=== PATIENT | female | born 2005 | race Caucasian/White ===

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

== ENCOUNTER → 2025-04-25 | Outpatient (CLI) | payer OTHER, SELFPAY ==
[2025-04-25 13:29] LABS: Barbiturate Urine NEGATIVE (< 200 ng/mL); Benzodiazepine Urine NEGATIVE (< 200 ng/mL); PCP Urine NEGATIVE (< 25 ng/mL); THC Urine PRESUMPTIVE POSITIVE (< 50 ng/mL)
[2025-04-26 21:07] LABS: Chlamydia By Nucleic Acid AMP Negative (Negative); Gonococcus By Nucleic Acid AMP Negative (Negative)
== END | disposition home or self-care (01) ==
PROVIDERS: PCP Family Medicine; Visit Provider Advanced Practice Midwife
DX: O09.90 Supervision of high risk pregnancy, unspecified, unspecified trimester (principal); Z3A.00 Weeks of gestation of pregnancy not specified; F12.90 Cannabis use, unspecified, uncomplicated; O99.320 Drug use complicating pregnancy, unspecified trimester
CPT/HCPCS: 80307; 87086; 87088; 87491; 87591

== ENCOUNTER → 2025-05-15 | Outpatient (CLI) | payer OTHER, SELFPAY ==
[2025-05-15 12:24] LABS: Hematocrit 41.1 % (37-47); Hemoglobin 14.5 g/dL (12.0-15.0); Immature Granulocytes Count 0.060 X10^3/uL (0.0-0.0); Mean Corp Hgb Conc 35.3 g/dL (32-36); Mean Corpuscular Volume 90.9 fL (81-99); Mean Platelet Vol. 10.0 fl (6.2-12.0); NRBC Flagged by Analyzer 0 % (0-5); Platelet Count 258 K/mm3 (150-450); RBC Distribution Width CV 12.7 % (11.6-14.6); RBC Distribution Width SD 41.7 fl (35.1-43.9); Red Blood Count 4.52 M/mm3 (4.2-5.4); White Blood Count 7.8 K/mm3 (4.4-11.0)
[2025-05-15 13:05] LABS: HIV Nonreactive (Nonreactive); Iron 219 ug/dL (50-170); Iron Binding Capacity,Total 383 ug/dL (250-450); Iron Binding Capacity,Unsat 164 ug/dL (228-428)
[2025-05-15 13:14] LABS: Hepatitis B Surface Antigen Nonreactive (Nonreactive); Hepatitis C Antibody Nonreactive (Nonreactive); Syphilis Antibodies Nonreactive (Nonreactive); Vitamin B12 518 pg/mL (180-914)
[2025-05-19 02:07] LABS: Vitamin B1, Thiamine 147.5 nmol/L (66.5-200.0)
== END | disposition home or self-care (01) ==
PROVIDERS: Advanced Practice Midwife; PCP Family Medicine; Referring Provider Obstetrics & Gynecology; Visit Provider Obstetrics & Gynecology
DX: O09.90 Supervision of high risk pregnancy, unspecified, unspecified trimester (principal); Z3A.00 Weeks of gestation of pregnancy not specified
CPT/HCPCS: 36415; 82607; 83540; 83550; 84425; 85025; 86703; 86762; 86780; 86803; 86850; 86900; 86901; 87340

== ENCOUNTER → 2025-07-12 | Outpatient (CLI) | payer OTHER, SELFPAY ==
--- NOTE | 2025-07-12 07:46 | US_ITS ---
PROCEDURE: OB ANATOMY W/ TRANSVAGINAL 07/12/2025 REASON FOR EXAM: ANATOMY SCAN TECHNIQUE: Procedure Code: [id number] Modality: US Procedure: OB ANATOMY W/ TRANSVAGINAL COMPARISON: 04/25/2025 FINDINGS FETUS: There is a single living intrauterine gestation. POSITION: position is breech. HEART RATE: The heart rate is 136 BPM and regular. BIOMETRICS: Based on composite biometry, the composite estimated gestational age by ultrasound is 20 weeks 0 days. LMP gestational age: 20 weeks 0 days LMP ANNI: November 29, 2025 Sonographic gestational age: 20 weeks 0 days Sonographic ANNI: November 29, 2025 ANATOMIC SURVEY: The visualized anatomy is unremarkable. No gross anatomic abnormality is identified, including intracranial structures, nose/lips, profile, 4 chamber heart, diaphragm, fluid-filled stomach and urinary bladder, kidneys, 3-vessel cord, cord insertion, and extremities. The spine is not well seen due to positioning. PLACENTA: The placenta is anterior, grade 0, with eccentric cord insertion. No demonstrated evidence of previa or abruption. The inferior placental margin terminates 4.5 cm from the internal cervical os. AMNIOTIC FLUID: Within normal limits. Max vertical pocket (MVP) measuring 6.1 cm. CERVIX: Long and closed measuring 4.7 cm in length. Unremarkable as visualized. SONOGRAPHIC MEASUREMENTS: Bi-Parietal Diameter (BPD): 4.8 cm; 20 weeks 3 days Head Circumference (HC): 17.9 cm; 20 weeks 2 days Abdominal Circumference (AC): 15.5 cm; 20 weeks 5 days Femur Length (FL): 3.1 cm; 19 weeks 3 days Estimated weight: 340 grams +/- 51 grams (12 oz) EFW percentile: 57.8 % US/OB Anatomy w/ Transvaginal IMPRESSION: 1. Single living intrauterine gestation estimated at 20 weeks 0 days by today' s ultrasound criteria. Size equals dates with normal interval growth. 2. The spine is not well seen due to positioning. No acute abnormality detected. Reading Location: [id number]
== END | disposition home or self-care (01) ==
LOC: US 07:45
PROVIDERS: PCP Family Medicine; Referring Provider Obstetrics & Gynecology; Visit Provider Obstetrics & Gynecology
DX: O09.90 Supervision of high risk pregnancy, unspecified, unspecified trimester (principal); Z3A.00 Weeks of gestation of pregnancy not specified
CPT/HCPCS: 76805; 76817

== ENCOUNTER → 2025-07-17 | Outpatient (CLI) | payer OTHER, SELFPAY ==
--- OUTSIDE RECORDS SUMMARY | 2025-07-17 09:22 | XMS RPT_ITS | CCD ---
Author Organization [facility] Care Team Providers Care Territory Account Executive Name Role Phone CHRISTIAN DENIS MD Primary Care Unavailable CHRISTIAN DENIS MD Attending Unavailable VERENA BYRNES Consulting Unavailable VERENA BYRNES Referring Unavailable CHRISTIAN DENIS MD Admitting Unavailable PROVIDER, UNKNOWN Consulting Unavailable PROVIDER, UNKNOWN Consulting Unavailable Dr. Verena Byrnes Primary Care Provider Dr. Verena Byrnes Referring Provider TAURUS Devine Attending Provider Dr. Verena Byrnes Primary Care Provider Dr. Verena Byrnes Referring Provider TAURUS Devine Attending Provider TAURUS Branham Attending Provider Dr. Verena Byrnes Primary Care Provider Dr. Verena Byrnes Referring Provider TAURUS Branham Attending Provider Verena Byrnes MD Primary Care Provider Dr. Verena Byrnes Primary Care Provider Dr. Verena Byrnes Referring Provider TAURUS Branham Attending Provider EWA VALENCIA Referring Unavailable EWA VALENCIA Attending Unavailable VERENA BYRNES Primary Care Unavailable EWA VALENCIA Referring Unavailable EWA VALENCIA Attending Unavailable MIEDGENA, VERENA E Primary Care Unavailable MELVA MEYER Attending Unavailable MELVA MEYER Admitting Unavailable MIEDEL, VERENA E Primary Care Unavailable EWA VALENCIA Attending Unavailable REFERRED, SELF Referring Unavailable QI BYRNESH E Primary Care Unavailable Soniya KING, Dr. Albarado Primary Care Provider Dr. Verena Byrnes MD Referring Provider [phone] Brenna Hill DO Attending Provider Karen Aj CNM Attending Provider [phone] Dr. Verena Byrnes MD Primary Care Physician Dr. Brenna Hill DO Attending Physician Karen Aj CNM Attending Physician [phone] Dr. Farzana Fair MD Attending Physician Dr. Farzana Fair MD Referring Provider [phone] Verena Byrnes Primary Care Unavailable Soniya Verena Referring Unavailable Farzana Fair Attending Unavailable Soniya, Verena Primary Care Unavailable Farzana Fair Referring Unavailable Farzana Fair Attending Unavailable Soniya, Verena Primary Care Unavailable Karen Aj Attending Unavailable Verena Byrnes Referring Unavailable Verena Byrnes Primary Care Unavailable Karen Aj Attending Unavailable Brenna Hill Attending Unavailabl e Vivianaedgena, Verena Referring Unavailable Caedgena, Verena Primary Care Unavailable Medications Current Medications Medication Drug Class(es) Dates Sig (Normalized) Sig (Original) FLUoxetine 20 mg oral capsule (9 sources) Serotonin Reuptake Inhibitor Start: 04-09-2025 End: 05-24-2025 take 1 capsule by mouth once daily Fluoxetine 20 mg capsule Active 20 mg PO daily 30 May 24, 2025 11:57am Complies with drug therapy Start: 10-07-2022 End: 01-26-2023 FLUoxetine (PROZAC) 20 MG ca psule 0 10/07/2022 01/26/2023 Discontinued (Stop Taking (On AVS)) Mv-Mins 19-Iawi-Twmqu No.1-D arias (Pnv-Mcintosh) 28-1-300 mg capsule (5 sources) Start: 04-09-2025 Mv-Mins 71-Iro n-Folic No.1-Dha (Pnv-Mcintosh) 28-1-300 mg capsule Active NMA PO April 09, 2025 12:00am Complies with drug therapy Start: 04-09-2025 Start: 04-09-2025 Mv-Mins 71-Iro n-Folic No.1-Dha (Pnv-Mcintosh) 28-1-300 mg capsule Active NMA PO April 09, 2025 12:00am promethazine hydrochloride 25 mg oral tablet (4 sources) Phenothiazine Start: 04-09-2025 take 1 tablet by mouth three times daily as needed for nausea and vomiting and anxiety Promethazine 25 mg tablet Active 25 mg PO THREE TIMES A DAY as needed for nausea and vomiting, and anxiety 60 2 April 09, 2025 12:00am Complies with drug therapy Completed/Discontinued Medications Medication Drug Class(es) Dates Sig (Normalized) Sig (Original) amoxicillin 500 mg oral capsule (10 sources) Penicillin-class Antibacterial Start: 07-20-2021 End: 09-20-2021 take 1 capsule by mouth every twelve hours Amoxicillin 500 mg capsule Discontinued 500 mg PO Q12H July 20, 2021 1:00am September 20, 2021 2:07pm amoxicillin 875 mg / clavulanate 125 mg oral tablet (10 sources) Penicillin-class Antibacterial Start: 06-22-2022 End: 07-02-2022 Amoxicillin-Pot Clavulanate 875-125 mg tablet Discontinued 1 {tbl} PO Q12H 20 10 June 22, 2022 12:00am July 01, 2022 1:00am July 02, 2022 1:05am Acute sinusitis, unspecified Start: 06-22-2022 End: 07-02-2022 take 1 tablet by mouth every twelve hours Amoxicillin-Pot Clavulanate Discontinued 1 TABLET PO Q12H 20 June 22, 2022 12:00am July 02, 2022 1:05am calcium chloride 0.0014 meq/ml / potassium chloride 0.004 meq/ml / sodium chloride 0.103 meq/ml / sodium lactate 0.028 meq/ml injectable solution (1 source) Start: 01-26-2023 End: 01-26-2023 CONTINUOUS, Intravenous, at 90 mL/hr, Starting on Tue01/26/23 at 1100, For 90 days, PACU clindamycin 300 mg oral capsule (10 sources) Lincosamide Antibacterial Start: 08-23-2018 End: 10-25-2018 take 1 capsule by mouth three times daily Clindamycin Hcl 300 mg capsule Discontinued 300 mg PO THREE TIMES A DAY 21 0 August 23, 2018 1:00am October 25, 2018 1:48pm dicyclomine hydrochloride 10 mg oral capsule (8 sources) Anticholinergic Start: 12-02-2022 End: 04-09-2025 take 2 capsules by mouth every six hours as needed Dicyclomine 10 mg capsule Discontinued 20 mg PO EVERY 6 HOURS NEEDED as needed for abdominal discomfort 24 December 02, 2022 3:27pm April 09, 2025 8:10am Start: 12-02-2022 take 20 mg by mouth every six hours as needed Dicyclomine Active 20 MG PO EVERY 6 HOURS NEEDED December 02, 2022 3:27pm escitalopram 10 mg oral tablet (13 sources) Serotonin Reuptake Inhibitor Start: 11-05-2019 End: 04-09-2025 take 2 tablets by mouth once daily Escitalopram Oxalate 10 mg tablet Discontinued 20 mg PO DAILY November 05, 2019 12:00am April 09, 2025 8:10am Start: 11-05-2019 take 20 mg by mouth once daily Escitalopram Oxalate Active 20 MG PO DAILY November 05, 2019 12:00am End: 01-26-2023 escitalopram (LEXAPRO) 10 MG tablet Take by mouth daily 0 01/26/2023 Discontinued (Stop Taking (On AVS)) esomeprazole 40 mg delayed release oral capsule (13 sources) Proton Pump Inhibitor Start: 07-03-2021 End: 04-09-2025 take 1 capsule by mouth once daily Esomeprazole Magnesium 40 mg capsule,delayed release(DR/EC) Discontinued 40 mg PO DAILY July 03, 2021 1:00am April 09, 2025 8:10am hydrOXYzine pamoate 25 mg oral capsule (10 sources) Antihistamine Start: 10-08-2021 End: 04-09-2025 take 1 capsule by mouth three times daily as needed for anxiety Hydroxyzine Pamoate (Vistaril) 25 mg capsule Discontinued 25 mg PO THREE TIMES A DAY as needed for anxiety 20 0 October 08, 2021 1:00am April 09, 2025 8:10am hyoscyamine sulfate 0.125 mg oral tablet (3 sources) Start: 02-25-2021 End: 01-26-2023 take 1 tablet by mouth every six hours as needed for pain hyoscyamine (LEVSIN) 0.125 MG TABS tablet Take 1 Tablet (0.125 mg) by mouth every 6 hours as needed for Other (abdominal pain, nausea) 90 Tablet 2 02/25/2021 01/26/2023 Discontinued (Stop Taking (On AVS)) ibuprofen 200 mg oral capsule (10 sources) Nonsteroidal Anti-inflammatory Drug Start: 10-26-2019 End: 11-05-2019 take 1 capsule by mouth every six hours as needed Ibuprofen 200 mg capsule Discontinued 200 mg PO EVERY 6 HOURS as needed October 26, 2019 1:00am November 05, 2019 5:48pm ondansetron 4 mg disintegrating oral tablet (8 sources) Serotonin-3 Receptor Antagonist Start: 12-02-2022 End: 04-09-2025 take 2 tablets by mouth every twelve hours as needed for nausea Ondansetron 4 mg tablet,disintegratin g Discontinued 8 mg PO EVERY 12 HOURS NEEDED as needed for Nausea 14 December 02, 2022 3:28pm April 09, 2025 8:10am Start: 12-02-2022 take 8 mg by mouth e very twelve hours as needed Ondansetron Active 8 MG PO EVERY 12 HOURS NEEDED December 02, 2022 3:28pm oseltamivir 75 mg oral capsule (10 sources) Neuraminidase Inhibitor Start: 10-26-2019 End: 10-31-2019 take 1 capsule by mouth every twelve hours Oseltamivir (Tamiflu) 75 mg capsule Discontinued 75 mg PO Q12H 10 5 0 October 26, 2019 1:00am October 30, 2019 12:00am October 31, 2019 12:07am penicillin v potassium 500 mg oral tablet (10 sources) Start: 11-10-2020 End: 11-20-2020 take 1 tablet by mouth twice daily Penicillin V Potassium 500 mg tablet Discontinued 500 mg PO TWICE A DAY 20 10 0 November 10, 2020 12:00am November 19, 2020 12:00am November 20, 2020 12:03am sulfamethoxazole 800 mg / trimethoprim 160 mg oral tablet (10 sources) Dihydrofolate Reductase Inhibitor Antibacterial, Sulfonamide Antimicrobial Start: 11-05-2019 End: 11-12-2019 Sulfamethoxazole- Trimethoprim (Bactrim Ds) 800-160 mg tablet Discontinued 1 {tbl} PO Q12H 14 7 0 November 05, 2019 12:00am November 11, 2019 12:00am November 12, 2019 12:07am Problems Active Problems Problem Classification Problem Date Documented Date Episodic/Chronic Abdominal pain (16 sources) Generalized abdominal pain; Translations: [Generalized abdominal pain] Onset: 12-17-2020 12-02-2022 Episodic Administrative/social admission (12 sources) Patient encounter status; Translations: [Encounter for pre-employment examination] Episodic Anxiety disorders (20 sources) Anxiety; Translations: [Anxiety disorder, unspecified] Onset: 04-25-2025 10-16-2021 Chronic Comment on above: fluoxetine Coagulation and hemorrhagic disorders (10 sources) Thrombocytopenic disorder; Translations: [Thrombocytopenia, unspecified] 10-16-2021 Chronic Diseases of mouth; excluding dental (10 sources) Parotitis; Translations: [Acute sialoadenitis] 03-12-2020 Episodic Esophageal disorders (3 sources) Gastroesophageal reflux disease; Translations: [Gastro-esophageal reflux disease without esophagitis] Onset: 12-17-2020 01-05-2021 Chronic Gastritis and duodenitis (8 sources) Acute gastritis; Translations: [Acute gastritis without bleeding] 12-02-2022 Episodic Gastroduodenal ulcer (except hemorrhage) (10 sources) H/O: gastric ulcer; Translations: [Personal history of peptic ulcer disease] Onset: 04-25-2025 04-09-2025 Episodic Immunizations and screening for infectious disease (20 sources) Contact with or exposure to other viral diseases; Translations: [Exposure to COVID-19 virus] Episodic Influenza (10 sources) Influenza due to Influenza B virus; Translations: [Influenza due to other identified influenza virus with other respiratory manifestations] 10-26-2019 Episodic Mood disorders (13 sources) Depressive disorder; Translations: [Depression] Onset: 02-17-2021 07-12-2021 Chronic Mood disorders (1 source) Mood disorders; Translations: [Depression, unspecified] Onset: 04-25-2025 Nausea and vomiting (6 sources) Vomiting; Translations: [Vomiting, unspecified] Onset: 12-17-2020 12-09-2022 Episodic Noninfectious gastroenteritis (18 sources) Gastroenteritis; Translations: [Noninfective gastroenteritis and colitis, unspecified] Onset: 04-25-2025 09-22-2022 Episodic Other complications of (9 sources) High risk ; Translations: [Supervision of high risk , unspecified, unspecified trimester] 04-09-2025 Episodic Comment on above: , ANNI 11/29/25, H usband Sebastian PRR, , ANNI , Sebastian Other complications of (1 source) Supervision of high risk , unspecified, unspecified trimester; Translations: [Supervision of high risk , unspecified, unspecified trimester] Onset: 05-24-2025 Episodic Other injuries and conditions due to external causes (5 sources) Contusion of rib; Translations: [Other specified injuries of thorax, initial encounter] 03-13-2020 Episodic Other nutritional; endocrine; and metabolic disorders (3 sources) Weight loss; Translations: [Abnormal weight loss] Onset: 12-09-2022 12-09-2022 Episodic Other nutritional; endocrine; and metabolic disorders (9 sources) Underweight; Translations: [Underweight] 04-09-2025 Episodic Comment on above: thiamine, B12, iron & iron binding Other nutritional; endocrine; and metabolic disorders (1 source) Underweight; Translations: [Underweight] Onset: 04-25-2025 Episodic Other nutritional; endocrine; and metabolic disorders (1 source) Body mass index (BMI) 19.9 or less, adult; Translations: [Body mass index [BMI] 19.9 or less, adult] Onset: 04-25-2025 Episodic Other and delivery including normal (9 sources) ; Translations: [Encounter for supervision of normal , unspecified, unspecified trimester] 04-25-2025 Episodic Comment on above: elects NIPT with gen beatriz, declines carrier NIPT low risk, decli jacqueline carrier Other upper respiratory disease (10 sources) Nasal infection; Translations: [Other specified disorders of nose and nasal sinuses] 09-20-2021 Episodic Other upper respiratory infections (20 sources) Pharyngitis; Translations: [Acute pharyngitis, unspecified] Episodic Residual codes; unclassified (9 sources) Electronic cigarette user; Translations: [Other problems related to lifestyle] 04-09-2025 Episodic Comment on above: cutting down, consid ering quitting, discussed risks & encouraged cessation Residual codes; unclassified (9 sources) Family history of breast cancer; Translations: [Family history of malignant neoplasm of breast] 04-09-2025 Episodic Comment on above: Maternal Grandmother Residual codes; unclassified (1 source) 8 weeks gestation of ; Translations: [8 weeks gestation of ] Onset: 04-25-2025 Episodic Residual codes; unclassified (1 source) Family history of malignant neoplasm of breast; Translations: [Family history of malignant neoplasm of breast] Onset: 04-25-2025 Episodic Residual codes; unclassified (1 source) Other problems related to lifestyle; Translations: [Other problems related to lifestyle] Onset: 04-25-2025 Episodic Skin and subcutaneous tissue infections (10 sources) Paronychia of finger; Translations: [Cellulitis of left finger] 11-05-2019 Episodic Sprains and strains (14 sources) Sprain of ankle; Translations: [Sprain of unspecified ligament of left ankle, initial encounter] 08-25-2022 Episodic Substance-related disorders (10 sources) Marijuana user; Translations: [Cannabis use, unspecified, uncomplicated] Onset: 04-25-2025 04-09-2025 Episodic Comment on above: attempting to decrea se use, discussed risks & encouraged cessation Suicide and intentional self-inflicted injury (10 sources) Suicidal thoughts; Translations: [Suicidal ideations] 07-12-2021 Episodic Superficial injury; contusion (20 sources) Contusion of foot; Translations: [Contusion of unspecified foot, initial encounter] 07-06-2020 Episodic Past or Other Problems Problem Classification Problem Date Documented Da te Episodic/Chronic Other gastrointestinal disorders (3 sources) Heartburn; Translations: [Heartburn] Onset: 12-17-2020 12-17-2020 Episodic Results Test Name Value Interpretation Reference Range Facility Devops Consultant Office Visit Reporton 05-24-2025 Devops Consultant Office Visit Report [facility] [address], [address] [place] [address] OFFICE VISIT Date of Service: 05/24/25 MR#: [id number] Acct: [id number] Name: PRESLEY FRANCE Rep #: [id number] : 2005 Provider: Dr. Farzana thompson MD Age/Sex: 20/F [place] [facility] [place]: Signed Intake Vital Signs 12/02/22 13:10 04/09/25 08:56 04/25/25 08:11 05/24/25 11:32 Height 5 ft 5 in 5 ft 5 in 5 ft 3.5 in 5 ft 3.5 in Weight: 111 lb 4 oz 112 lb 7 oz BMI 19.3 19.5 BP 113/73 114/71 Intake Visit Reasons: 13 WK OB, discuss iron Boiler Attendant Required: No Is patient in pain?: No Allergies No Known Allergies Allergy (Verified 05/24/25 11:37) Medications ???Medication ???Instructions ???Recorded ???Confirmed ???Type multivit-min no.71-iron fum 28 cap PO 04/09/25 05/24/25 History mg-folate no.1 1 mg-dha 300 mg capsule (PNV-Mcintosh) promethazine 25 mg tablet 25 mg PO TID PRN nausea and 05/24/25 Rx vomiting, and anxiety #60 tabs fluoxetine 20 mg capsule 20 mg PO QDAY #30 caps 05/24/25 Rx Last Menstrual Period: 02/22/25 Zika: Zika virus screening: Negative : No PFSH PFSH Medical History Seasonal allergies Paronychia of finger of left hand Contact with and (suspected) exposure to other viral communicable diseases Gastroenteritis Contusion of left foot Left ankle sprain Depression Anxiety GERD (gastroesophageal reflux disease) Surgical History History of esophagogastroduodenoscopy (EGD) Family History Father High cholesterol Mother High cholesterol Maternal Grandmother Breast cancer, Onset Age: 67 Grandfather Cancer, Onset Age: 66 Paternal Maternal Grandfather Myocardial infarction, Onset Age: 50 Social History adopted: No household members: spouse housing: other details: trailer current occupational status: employed current occupation: [employer] pets and animals: Yes (Avoid litterbox) pets and animals: cat(s) and dog(s) history of recent travel: No sexually active: Yes Smoking Status: Current every day smoker tobacco type: e-cigarettes quit status: considering quitting alcohol intake: never substance use type: marijuana well-balanced diet: about half the time caffeine: Yes Type: coffee Number of servings: 2 eating out: 1-3 times/week during the past year weight has: remained stable what type of physical activity do you participate in: none giles/voodoo: None seatbelt use: sometimes do you feel safe at home: Yes additional social history: [employer] History 1 Elective abortions Hx Para 0 Spontaneous abortions Hx # Term Pregnancies Ectopic pregnancies Hx # Pregnancies Multiple births # of living children HPI 13 WK OB, discuss iron Details: PRESLEY FRANCE is a 20 year old who presents for routine OB visit. OB Visit ANNI Calculator Estimated Delivery Date Method Current WG Current Estimate 11/29/25 LMP (Uncertain) 13w 0d Other Estimates 11/29/25 Ultrasound #1 13w 0d Expected Delivery Route/Plan Labor Preferences- CB/BF classes: [] labor support person: [] labor intervention preferences: [] pain management options preferred: [] cut cord/dad catch: [] : [] PP control planned: [] discussed possible routes of delivery and associated risks: [] special requests: [] Specific Issue/Plans Covid status: [] Flu vaccine: [] Tdap vaccine: [] Rhogam: [] LARC form signed: [] Problem list reviewed and updated with the most current plan of care details and appropriate orders placed. Relevant counseling for the gestational age provided. Continue routine care and follow up unless otherwise noted in visit notes/problem list details Initial Weight: 111 lb Date -???-???-???-???-???-???-? ??-???-???-???-???-???- EGA Weight BP Urine Prot -???-???-???-???-???-???-? ??-???-???-???-???-???- Glucose FHR FuHt Pres Dilation -???-???-???-???-???-???-? ??-???-???-???-???-???- Effaced St Visit Note 04/25/25 -???-???-???-???-???-???-? ??-???-???-???-???-???- 8w 6d 111 lb 4 oz (+4 oz) 113/73 -???-???-???-???-???-???-? ??-???-???-???-???-???- 176 -???-???-???-???-???-???-? ??-???-???-???-???-???- KW- CRL 2.22 cons with dates. accepts NIPT 05/24/25 -???-???-???-???-???-???-? ??-???-???-???-???-???- 13w 0d 112 lb 7 oz (+1 lb 7 oz) 114/71 -???-???-???-???-???-???-? ??-???-???-???-???-???- 150 -???-???-???-???-???-???-? ??-???-???-???-???-???- SM- no vb lo f cramping ACOG First Trimester First Trim (more content not included)... Normal [facility] Vitamin B1, Thiamineon 05-19 VIT B1 THIAMINE 147.5 nmol/L Normal 66.5-200.0 [facility] Comment on above: Order Comment: Test( s) [id number]-Mzh. B1, Whole Bloodwas developed and its performance characteristicsdetermined by [facility]. It has not been cleared or approvedby the Food and Drug Administration.NIPT With Gender carrier Result Comment: Perf ormed at: [facility] [id number] Document Design Specialist: Teo Blum MD, Phone: [phone] Performed By: #### L 509.8002, BTS, L3300.8000, L3890.6006, L100.0100, L503.0106, L3890.6301, L3890.6102, L900.0098, L509.4006, L503.6030 ####[facility] [id number] [place], [place], [id number] Absolute lymphocyte countOrd ered By: Karen Aj on 05-15-2025 Lymphocytes Auto (Unsp spec) [#/Vol] 1.36 10*3/uL 0.83-4.51 [facility] Absolute neutrophil countOrd ered By: Karen Aj on 05-15-2025 Neutrophils (Bld) [#/Vol] 5.8 10*3/uL 2.0-7.7 [facility] Automated lymphocyte count a s percentage of total leukocytesOrdered By: Karen Aj on 05-15-2025 Lymphocytes/100 WBC Auto (Unsp spec) 17.4 % Low 19-41 [facility] Basophil percentageOrdered B y: Karen Aj on 05-15-2025 Basophils/100 WBC (Bld) 0.5 % 0-1 [facility] CBC W/Diff, Automatedon 04-23 Absolute Lymph 1.36 X10 3/uL Normal 0.83-4.51 [facility] Comment on above: Performed By: #### L 509.8002, BTS, L3300.8000, L3890.6006, L100.0100, L503.0106, L3890.6301, L3890.6102, L900.0098, L509.4006, L503.6030 #### [facility] [address] [place], [address] Absolute Neut 5.8 X10 3/uL Normal 2.0-7.7 [facility] Comment on above: Performed By: #### L 509.8002, BTS, L3300.8000, L3890.6006, L100.0100, L503.0106, L3890.6301, L3890.6102, L900.0098, L509.4006, L503.6030 #### [facility] [address] [place], [address] Basophils/100 WBC (Bld) 0.5 % Normal 0-1 [facility] Comment on above: Performed By: #### L 509.8002, BTS, L3300.8000, L3890.6006, L100.0100, L503.0106, L3890.6301, L3890.6102, L900.0098, L509.4006, L503.6030 #### [facility] [address] [place], [address] Eosinophils/100 WBC (Bld) 0.4 % Normal 0-5 [facility] Comment on above: Performed By: #### L 509.8002, BTS, L3300.8000, L3890.6006, L100.0100, L503.0106, L3890.6301, L3890.6102, L900.0098, L509.4006, L503.6030 #### [facility] [address] [place], [address] Erythrocyte distribution width (RBC) [Ratio] 12.7 % Normal 11.6-14.6 [facility] Comment on above: Performed By: #### L 509.8002, BTS, L3300.8000, L3890.6006, L100.0100, L503.0106, L3890.6301, L3890.6102, L900.0098, L509.4006, L503.6030 #### [facility] [address] [place], [address] Hematocrit (Bld) [Volume fraction] 41.1 % Normal 37-47 [facility] Comment on above: Performed By: #### L 509.8002, BTS, L3300.8000, L3890.6006, L100.0100, L503.0106, L3890.6301, L3890.6102, L900.0098, L509.4006, L503.6030 #### [facility] [address] [place], [address] Hemoglobin (Bld) [Mass/Vol] 14.5 g/dL Normal 12.0-15.0 [facility] Comment on above: Performed By: #### L 509.8002, BTS, L3300.8000, L3890.6006, L100.0100, L503.0106, L3890.6301, L3890.6102, L900.0098, L509.4006, L503.6030 #### [facility] [address] [place], [address] IG% 0.800 Normal 0.0-0.9 [facility] Comment on above: Result Comment: IG% - Immature Granulocytes (promyelocytes, myelocytes and metamyelocytes) > 1% indicates that a LEFT SHIFT is Present. Performed By: #### L 509.8002, BTS, L3300.8000, L3890.6006, L100.0100, L503.0106, L3890.6301, L3890.6102, L900.0098, L509.4006, L503.6030 #### [facility] [address] [place], [address] Lymphocytes/100 WBC (Bld) 17.4 % Low 19-41 [facility] Comment on above: Performed By: #### L 509.8002, BTS, L3300.8000, L3890.6006, L100.0100, L503.0106, L3890.6301, L3890.6102, L900.0098, L509.4006, L503.6030 #### [facility] [address] [place], [address] MCH (RBC) [Entitic mass] 32.1 pg High 27.0-32.0 [facility] Comment on above: Performed By: #### L 509.8002, BTS, L3300.8000, L3890.6006, L100.0100, L503.0106, L3890.6301, L3890.6102, L900.0098, L509.4006, L503.6030 #### [facility] [address] [place], [address] MCHC (RBC) [Mass/Vol] 35.3 g/dL Normal 32-36 [facility] Comment on above: Performed By: #### L 509.8002, BTS, L3300.8000, L3890.6006, L100.0100, L503.0106, L3890.6301, L3890.6102, L900.0098, L509.4006, L503.6030 #### [facility] [address] [place], [address] MCV (RBC) [Entitic vol] 90.9 fL Normal 81-99 [facility] Comment on above: Performed By: #### L 509.8002, BTS, L3300.8000, L3890.6006, L100.0100, L503.0106, L3890.6301, L3890.6102, L900.0098, L509.4006, L503.6030 #### [facility] [address] [place], [address] Monocytes/100 WBC (Bld) 7.2 % Normal 0-10 [facility] Comment on above: Performed By: #### L 509.8002, BTS, L3300.8000, L3890.6006, L100.0100, L503.0106, L3890.6301, L3890.6102, L900.0098, L509.4006, L503.6030 #### [facility] [address] [place], [address] Neutrophils/100 WBC (Bld) 73.7 % High 47-70 [facility] Comment on above: Performed By: #### L 509.8002, BTS, L3300.8000, L3890.6006, L100.0100, L503.0106, L3890.6301, L3890.6102, L900.0098, L509.4006, L503.6030 #### [facility] [address] [place], [place], [id number] (030) Nucleated RBC (Bld) [#/Vol] 0 10*3/uL Normal 0-5 [facility] Comment on above: Performed By: #### L 509.8002, BTS, L3300.8000, L3890.6006, L100.0100, L503.0106, L3890.6301, L3890.6102, L900.0098, L509.4006, L503.6030 #### [facility] [address] [place], [address] Platelet mean volume (Bld) [Entitic vol] 10.0 fL Normal 6.2-12.0 [facility] Comment on above: Performed By: #### L 509.8002, BTS, L3300.8000, L3890.6006, L100.0100, L503.0106, L3890.6301, L3890.6102, L900.0098, L509.4006, L503.6030 #### [facility] [address] [place], [address] Platelets (Bld) [#/Vol] 258 10*3/uL Normal 150-450 [facility] Comment on above: Performed By: #### L 509.8002, BTS, L3300.8000, L3890.6006, L100.0100, L503.0106, L3890.6301, L3890.6102, L900.0098, L509.4006, L503.6030 #### [facility] [address] [place], [address] RBC (Bld) [#/Vol] 4.52 10*6/uL Normal 4.2-5.4 [facility] Comment on above: Performed By: #### L 509.8002, BTS, L3300.8000, L3890.6006, L100.0100, L503.0106, L3890.6301, L3890.6102, L900.0098, L509.4006, L503.6030 #### [facility] [address] [place], [address] RDW SD 41.7 fl Normal 35.1-43.9 [facility] Comment on above: Performed By: #### L 509.8002, BTS, L3300.8000, L3890.6006, L100.0100, L503.0106, L3890.6301, L3890.6102, L900.0098, L509.4006, L503.6030 #### [facility] [address] [place], [address] WBC (Bld) [#/Vol] 7.8 10*3/uL Normal 4.4-11.0 [facility] Comment on above: Performed By: #### L 509.8002, BTS, L3300.8000, L3890.6006, L100.0100, L503.0106, L3890.6301, L3890.6102, L900.0098, L509.4006, L503.6030 #### [facility] [address] [place], [place], [id number] Eosinophil percentageOrdered By: Karen Aj on 05-15-2025 Eosinophils/100 WBC (Bld) 0.4 % 0-5 [facility] Erythrocyte distribution wid th ratioOrdered By: Karen Aj on 05-15-2025 Erythrocyte distribution width (RBC) [Ratio] 12.7 % 11.6-14.6 [facility] Erythrocyte distribution wid th standard deviationOrdered By: Karen Aj on 05-15-2025 Erythrocyte distribution width (RBC) [Ratio] 41.7 fl 35.1-43.9 [facility] HIVon 05-15-2025 HIV Non-Reactive Normal Nonreactive [facility] Comment on above: Result Comment: Non- Reactive Reactive Repeatedly reactive samples must be confirmed according to CDC recommended confirmatory algorithms. The subresults for either HIVAG or AHIV can be used as an aid in the selection of the confirmation algorithm for reactive samples. Send out specimens with Reactive results to [facility] for confirmation. Order the HIV antibody detection and differentiation: lc#[id number] Performed By: #### L 509.8002, BTS, L3300.8000, L3890.6006, L100.0100, L503.0106, L3890.6301, L3890.6102, L900.0098, L509.4006, L503.6030 ####[facility] [address] [place], [place], [id number] Hematocrit Auto (Bld) [Volum e fraction]Ordered By: Karen Aj on 05-15-2025 Hematocrit (Bld) [Volume fraction] 41.1 % 37-47 [facility] Hemoglobin measurementOrdere d By: Karen Aj on 05-15-2025 Hemoglobin (Bld) [Mass/Vol] 14.5 g/dL 12.0-15.0 [facility] Hepatitis C Antibodyon 05-15 Hepatitis C Ab Non-Reactive Normal Nonreactive [facility] Comment on above: Result Comment: Reac tive: Presumptive evidence of antibodies to HCV. Follow CDC recommendations for supplemental testing. Non-Reactive: Antibodies to HCV were not detected; does not exclude the possibility of exposure to HCV Reactive Results are presumptive evidence of antibodies to HCV. Follow CDC recommendations for supplemental testing. Order confirmation testing: HCV Quant by PCR testing - HCVPCR lc#[id number] Non Reactive: < 0.8 Equivocal: >/= 0.8 to < 1.0 Reactive: >/= 1.0 The CDC requires that a reactive/equivocal HCV antibody result be sent out for confirmation. HCV Quant by PCR testing. Performed By: #### L 509.8002, BTS, L3300.8000, L3890.6006, L100.0100, L503.0106, L3890.6301, L3890.6102, L900.0098, L509.4006, L503.6030 ####[facility] [address] [place], [place], [id number] Immature granulocytes/100 WB C Auto (Bld)Ordered By: Karen Aj on 05-15-2025 Immature granulocytes/100 WBC (Bld) 0.800 % 0.0-0.9 [facility] Comment on above: IG% - Immature Granu locytes (promyelocytes, myelocytes and metamyelocytes) > 1% indicates that a LEFT SHIFT is Present. Iron measurement (mass/mass) Ordered By: Karen Aj on 05-15-2025 Iron (Unsp spec) [Mass/Mass] 219 ug/dL High 50-170 [facility] Iron+Iron Binding Capacityon 05-15-2025 Iron [Mass/Vol] 219 ug/dL High 50-170 [facility] Comment on above: Order Comment: NIPT With Gender carrier Performed By: #### L 509.8002, BTS, L3300.8000, L3890.6006, L100.0100, L503.0106, L3890.6301, L3890.6102, L900.0098, L509.4006, L503.6030 #### [facility] [address] [facility] [place], [address] IRON SATURATION 57.2 Normal 13-59 [facility] Comment on above: Order Comment: NIPT With Gender carrier Performed By: #### L 509.8002, BTS, L3300.8000, L3890.6006, L100.0100, L503.0106, L3890.6301, L3890.6102, L900.0098, L509.4006, L503.6030 #### [facility] [address] [facility] [place], [address] TIBC 383 ug/dL Normal 250-450 [facility] Comment on above: Order Comment: NIPT With Gender carrier Performed By: #### L 509.8002, BTS, L3300.8000, L3890.6006, L100.0100, L503.0106, L3890.6301, L3890.6102, L900.0098, L509.4006, L503.6030 #### [facility] [address] [facility] [place], [address] UIBC 164 ug/dL Low 228-428 [facility] Comment on above: Order Comment: NIPT With Gender carrier Performed By: #### L 509.8002, BTS, L3300.8000, L3890.6006, L100.0100, L503.0106, L3890.6301, L3890.6102, L900.0098, L509.4006, L503.6030 #### [facility] [address] [facility] [place], [address] L3890.6102on 05-15-2025 HEP B Surf Ag Non-Reactive Normal Nonreactive [facility] Comment on above: Result Comment: Reac tive: Presumptive evidence of HBV. Repeatedly reactive samples must be confirmed using a neutralization test ([employer] HBsAg Confirmatory Test) Non-Reactive: HBsAg not detected; does not exclude the possibility of exposure to HBV Performed By: #### L 509.8002, BTS, L3300.8000, L3890.6006, L100.0100, L503.0106, L3890.6301, L3890.6102, L900.0098, L509.4006, L503.6030 ####[facility] [address] [facility] [place], [address] L509.4006on 05-15-2025 Rubella IgG REAC Normal Nonreactive [facility] Comment on above: Result Comment: Anti body Result: Interpretation Non-Reactive: Non-Immune Reactive: Immune The following results were obtained with the [employer] Rubella IgG assay. Results from assays of other manufacturers cannot be used interchangeably. Performed By: #### L 509.8002, BTS, L3300.8000, L3890.6006, L100.0100, L503.0106, L3890.6301, L3890.6102, L900.0098, L509.4006, L503.6030 ####[facility] [address] [place], [address] Laboratory - Microbiology an d Antimicrobial susceptibilityOrdered By: Karen Aj on 05-15-2025 HBV surface Ag Ql (S) Non-Reactive Nonreactive [facility] Comment on above: Reactive: Presumptiv e evidence of HBV. Repeatedly reactive samples must be confirmed using a neutralization test ([employer] HBsAg Confirmatory Test)Non-Reactive: HBsAg not detected; does not exclude the possibility of exposure to HBV MCV (mean corpuscular volume ) determinationOrdered By: Karen Aj on 05-15-2025 MCV (RBC) [Entitic vol] 90.9 fL 81-99 [facility] Mean corpuscular hemoglobin (MCH) determinationOrdered By: Karen Aj on 05-15-2025 MCH (RBC) [Entitic mass] 32.1 pg High 27.0-32.0 [facility] Mean corpuscular hemoglobin concentration (MCHC) determinationOrdered By: Karen Aj on 05-15-2025 MCHC (RBC) [Mass/Vol] 35.3 g/dL 32-36 [facility] Mean platelet volume determi nationOrdered By: Karen Aj on 05-15-2025 Platelet mean volume (Bld) [Entitic vol] 10.0 fL 6.2-12.0 [facility] Monocyte percentageOrdered B y: Karen Aj on 05-15-2025 Monocytes/100 WBC (Bld) 7.2 % 0-10 [facility] NATERAon 09-24-2025 NATURA SEE SCANNED REPORT Normal [facility] Comment on above: Order Comment: Comme nts: NIPT With Gender carrier Performed By: #### L 509.8002, BTS, L3300.8000, L3890.6006, L100.0100, L503.0106, L3890.6301, L3890.6102, L900.0098, L509.4006, L503.6030 #### [facility] [address] [place], [address] Neutrophil percentageOrdered By: Karen Aj on 05-15-2025 Neutrophils/100 WBC (Bld) 73.7 % High 47-70 [facility] No Panel InformationOrdered By: Karen Aj on 05-15-2025 HIV (1&2) Antibody Non-Reactive Nonreactive [facility] Comment on above: Non-ReactiveReactive Repeatedly reactive samples must be confirmed according to CDC recommended confirmatory algorithms. The subresults for either HIVAG or AHIV can be used as an aid in the selection of the confirmation algorithm for reactive samples.Send out specimens with Reactive results to [facility] for confirmation.Order the HIV antibody detection and differentiation: #[id number] Unsaturated Iron Binding Capacity 164 ug/dL Low 228-428 [facility] Nucleated red blood cell per centageOrdered By: Karen Aj on 05-15-2025 Nucleated RBC/100 WBC (Bld) [Ratio] 0 % 0-5 [facility] Platelet countOrdered By: Young Aj on 05-15-2025 Platelets (Bld) [#/Vol] 258 10*3/uL 150-450 [facility] RBC Auto (Bld) [#/Vol]Ordere d By: Karen Aj on 05-15-2025 RBC (Bld) [#/Vol] 4.52 10*6/uL 4.2-5.4 [facility] Serum or plasma iron saturat ion measurement (mass fraction)Ordered By: Karen Aj on 05-15-2025 Iron saturation [Mass fraction] 57.2 % 13-59 [facility] Serum or plasma thiamine alicia surement (mass/volume)Ordered By: Karen Aj on 05-15-2025 Thiamine [Mass/Vol] 147.5 nmol/L 66.5-200.0 [facility] Comment on above: Performed at: [address] [id number] Director: Teo Blum MD, Phone: [phone] Syphilis Antibodieson 2024 Syphilis Abs Non-Reactive Normal Nonreactive [facility] Comment on above: Performed By: #### L 509.8002, BTS, L3300.8000, L3890.6006, L100.0100, L503.0106, L3890.6301, L3890.6102, L900.0098, L509.4006, L503.6030 ####[facility] [address] [place], [address] Type AND Screenon 05-15-2025 Ab SCREEN GEL Negative Normal [facility] Comment on above: Order Comment: PN Performed By: #### L 509.8002, BTS, L3300.8000, L3890.6006, L100.0100, L503.0106, L3890.6301, L3890.6102, L900.0098, L509.4006, L503.6030 ####[facility] [address] [place], [address] ABO and Rh group Nom (Bld) Blood group A Rh(D) positive Normal [facility] Comment on above: Order Comment: PN Performed By: #### L 509.8002, BTS, L3300.8000, L3890.6006, L100.0100, L503.0106, L3890.6301, L3890.6102, L900.0098, L509.4006, L503.6030 ####[facility] [address] [place], [address] Vitamin B12on 05-15-2025 Cobalamin (Vitamin B12) [Mass/Vol] 518 pg/mL Normal 180-914 [facility] Comment on above: Result Comment: AMENDED REPORT 05/15/25 1314 Vitamin B12 previously reported as: 536 pg/mL Performed By: #### L 509.8002, BTS, L3300.8000, L3890.6006, L100.0100, L503.0106, L3890.6301, L3890.6102, L900.0098, L509.4006, L503.6030 #### [facility] [address] [place], [address] Vitamin B12 ser/plasOrdered By: Karen Aj on 05-15-2025 Cobalamin (Vitamin B12) [Mass/Vol] 518 pg/mL 180-914 [facility] Comment on above: Previous reported re sult: 536 pg/mLEdited by: ARLET on 05/15/25:1314 AMENDED REPORT 05/15/25 1314 Vitamin B12 previously reported as: 536 pg/mL White blood cell (WBC) count Ordered By: Karen Aj on 05-15-2025 WBC (Bld) [#/Vol] 7.8 10*3/uL 4.4-11.0 [facility] Urine Cultureon 04-27-2025 URC Mixed Gram Positive Organisms [place] Count 11,000-25,000 [facility]IX[facility] Mixed contaminants. Submit a new specimen if indicated. Normal [facility] Comment on above: Performed By: #### L 505.5000, L7000.1800, M100.2200 #### [facility] [address] [place], [address] Chlamydia/GC ROOPA aptimaon CHLAMY,NUC ACID Negative Normal Negative [facility] Comment on above: Performed By: #### L 505.5000, L7000.1800, M100.2200 #### [facility] [address] [place], [address] GC BY NUC ACID Negative Normal Negative [facility] Comment on above: Result Comment: Perf ormed at: =G - [facility] [id number] Document Design Specialist: Renetta Dunlap MD, Phone: [phone] Performed By: #### L 5055000, L1800.7758, K000.0286 #### [facility] [address] [place], [place], [id number] Amphetamine detection with 1 000 ng/mL as cutoffOrdered By: Karen Aj on 04-25-2025 Amphetamines Screen method >1000 ng/mL Ql (U) Negative < 200 ng/mL [facility] Chlamydia trachomatis rRNA d etection by probe and target amplification methodOrdered By: Karen Aj on 04-25-2025 C. trachomatis rRNA ROOPA+probe Ql (Unsp spec) Negative Negative [facility] Neisseria gonorrhoeae nuclei c acid detection by amplified probe techniqueOrdered By: Karen Aj on 04-25-2025 N. gonorrhoeae DNA ROOPA+probe Ql (Unsp spec) Negative Negative [facility] Comment on above: Performed at: [address] [id number] Director: Renetta Dunlap MD, Phone: [phone] No Panel InformationOrdered By: Karen Aj on 04-25-2025 Urine Buprenorphine Qualitative Negative < 200 ng/mL [facility] Urine Oxycodone Screen Negative < 100 ng/mL [facility] Devops Consultant Office Visit Reporton 04-25-2025 Devops Consultant Office Visit Report [facility] [address], [address] [place] [address] OFFICE VISIT Date of Service: 04/25/25 MR#: [id number] Acct: [id number] Name: PRESLEY FRANCE Rep #: [id number] : 2005 Provider: PHUONG Koehler ams Age/Sex: 20/F [place] [facility] [place]: Signed Intake Vital Signs 12/02/22 13:10 04/09/25 09:41 04/25/25 08:11 Height 5 ft 5 in 5 ft 3.5 in 5 ft 3.5 in Weight: 104 lb 5 oz 111 lb 4 oz BMI 18.1 19.3 BP 110/60 113/73 Blood Pressure Location Lt brachial Position Sitting Intake Visit Reasons: *NEW* NOB LMP 7/4, NANI 11/29 Chief Complaint: New OB Boiler Attendant Required: No Is patient in pain?: No Allergies No Known Allergies Allergy (Verified 04/25/25 08:11) Medications ???Medication ???Instructions ???Recorded ???Confirmed ???Type fluoxetine 20 mg capsule 20 mg PO QDAY 04/09/25 04/25/25 Hi story multivit-min no.71-iron fum 28 cap PO 04/09/25 04/25/25 History mg-folate no.1 1 mg-dha 300 mg capsule (PNV-Mcintosh) promethazine 25 mg tablet 25 mg PO TID PRN nausea and 04/25/25 Rx vomiting, and anxiety #60 tabs Last Menstrual Period: 02/22/25 : Yes PFSH PFSH Medical History Seasonal allergies Paronychia of finger of left hand Contact with and (suspected) exposure to other viral communicable diseases Gastroenteritis Contusion of left foot Left ankle sprain Depression Anxiety GERD (gastroesophageal reflux disease) Surgical History History of esophagogastroduodenoscopy (EGD) Family History Father High cholesterol Mother High cholesterol Maternal Grandmother Breast cancer, Onset Age: 67 Grandfather Cancer, Onset Age: 66 Paternal Maternal Grandfather Myocardial infarction, Onset Age: 50 Social History adopted: No household members: spouse housing: other details: trailer current occupational status: employed current occupation: [employer] pets and animals: Yes (Avoid litterbox) pets and animals: cat(s) and dog(s) history of recent travel: No sexually active: Yes Smoking Status: Current every day smoker tobacco type: e-cigarettes quit status: considering quitting alcohol intake: never substance use type: marijuana well-balanced diet: about half the time caffeine: Yes Type: coffee Number of servings: 2 eating out: 1-3 times/week during the past year weight has: remained stable what type of physical activity do you participate in: none giles/voodoo: None seatbelt use: sometimes do you feel safe at home: Yes additional social history: [employer] History 1 Elective abortions Hx Para 0 Spontaneous abortions Hx # Term Pregnancies Ectopic pregnancies Hx # Pregnancies Multiple births # of living children HPI *NEW* NOB LMP 02/22, ANNI 11/29 Details: PRESLEY FRANCE is a 20 year old who presents for New OB visit. OB Visit ANNI Calculator Estimated Delivery Date Method Current WG Current Estimate 11/29/25 LMP (Uncertain) 8w 6d Other Estimates 11/29/25 Ultrasound #1 8w 6d Comments: HIV: Urine Culture: Sequential Screen: NIPT Screen: Estimated Due Date: 11/29/25 Expected Delivery Route/Plan Labor Preferences- CB/BF classes: [] labor support person: [] labor intervention preferences: [] pain management options preferred: [] cut cord/dad catch: [] : [] PP control planned: [] discussed possible routes of delivery and associated risks: [] special requests: [] Specific Issue/Plans Covid status: [] Flu vaccine: [] Tdap vaccine: [] Rhogam: [] LARC form signed: [] Problem list reviewed and updated with the most current plan of care details and appropriate orders placed. Relevant counseling for the gestational age provided. Continue routine care and follow up unless otherwise noted in visit notes/problem list details Initial Weight: 111 lb Date -???-???-???-???-???-???-? ??-???-???-???-???-???- EGA Weight BP Urine Prot -???-???-???-???-???-???-? ??-???-???-???-???-???- Glucose FHR FuHt Pres Dilation -???-???-???-???-???-???-? ??-???-???-???-???-???- Effaced St Visit Note 04/25/25 -???-???-???-???-???-???-? ??-???-???-???-???-???- 8w 6d 111 lb 4 oz (+4 oz) 113/73 -???-???-???-???-???-???-? ??-???-???-???-???-???- 176 -???-???-???-???-???-???-? ??-???-???-???-???-???- KW- CRL 2.22 cons with dates. accepts NIPT Menstrual History Last Menstrual Period: 02/22/25 Reported LMP: definite Normal amount/duration: No (shorter than normal) Frequency in days: 28-30 On hormonal BC at c (more content not included)... Normal [facility] Quantitative urine opiates m easurementOrdered By: Karen Aj on 04-25-2025 Opiates Ql (U) Negative < 300 ng/mL [facility] Screening urine fentanyl alicia surementOrdered By: Karen Aj on 04-25-2025 fentaNYL Screen Ql (U) Negative <5 ng/mL [facility] Comment on above: CONFIRMATORY TESTING FOR ALL POSITIVE URINE DRUG SCREENRESULTS WILL ONLY BE SENT OUT UPON PHYSICIAN ORDER. [facility] Urine Drug Screen methods provide only preliminaryanalytical test results. A more specific alternate chemicalmethod must be used in order to obtain a confirmedanalytical result. Gas chromatography/mass spectrometery(GC/MS) is the preferred confirmatory method. Clinicalconsideration and professional judgement should be appliedto any drug of abuse test result, particularly whenpreliminary positive results are used. Urine TCA testing must be ordered separately. Use test mnemonic: UTCA Urine Drug Screen (VISTA)on 04-25-2025 AMPHETAMINES Negative Normal <1000 ng/mL [facility] Comment on above: Order Comment: UNK Performed By: #### L 505.5000, L7000.1800, M100.2200 #### [facility] [address] [place], [address] BARBITIURATES Negative Normal < 200 ng/mL [facility] Comment on above: Order Comment: UNK Performed By: #### L 505.5000, L7000.1800, M100.2200 #### [facility] [address] [place], [address] BENZODIAZIPINE Negative Normal < 200 ng/mL [facility] Comment on above: Order Comment: UNK Performed By: #### L 505.5000, L7000.1800, M100.2200 #### [facility] [address] [place], [address] BUP Ur Drug Scr Negative Normal < 200 ng/mL [facility] Comment on above: Order Comment: UNK Performed By: #### L 505.5000, L7000.1800, M100.2200 #### [facility] [address] [place], [address] COCAINE Negative Normal < 300 ng/mL [facility] Comment on above: Order Comment: UNK Performed By: #### L 505.5000, L7000.1800, M100.2200 #### [facility] [address] [place], [address] Fentanyl Negative Normal <5 ng/mL [facility] Comment on above: Order Comment: UNK Result Comment: CONF IRMATORY TESTING FOR ALL POSITIVE URINE DRUG SCREEN RESULTS WILL ONLY BE SENT OUT UPON PHYSICIAN ORDER. [facility] [employer] Urine Drug Screen methods provide only preliminary analytical test results. A more specific alternate chemical method must be used in order to obtain a confirmed analytical result. Gas chromatography/mass spectrometery (GC/MS) is the preferred confirmatory method. Clinical consideration and professional judgement should be applied to any drug of abuse test result, particularly when preliminary positive results are used. Urine TCA testing must be ordered separately. Use test mnemonic: UTCA Performed By: #### L 505.5000, L7000.1800, M100.2200 #### [facility] [address] [place], [address] METHADONE Negative Normal < 300 ng/mL [facility] Comment on above: Order Comment: UNK Performed By: #### L 505.5000, L7000.1800, M100.2200 #### [facility] [address] [place], [address] OPIATES Negative Normal < 300 ng/mL [facility] Comment on above: Order Comment: UNK Performed By: #### L 505.5000, L7000.1800, M100.2200 #### [facility] [address] [place], [address] OXYCODONE Negative Normal < 100 ng/mL [facility] Comment on above: Order Comment: UNK Performed By: #### L 505.5000, L7000.1800, M100.2200 #### [facility] [address] [place], [address] PCP Negative Normal < 25 ng/mL [facility] Comment on above: Order Comment: UNK Performed By: #### L 505.5000, L7000.1800, M100.2200 #### [facility] [address] [place], [address] THC Positive Normal < 50 ng/mL [facility] Comment on above: Order Comment: UNK Result Comment: If c onfirmation testing is needed, a separate order will be required to send out testing to the reference laboratory. Performed By: #### L 505.5000, L7000.1800, M100.2200 #### [facility] [address] [place], [address] Urine benzodiazepine levelOr dered By: Karen Aj on 04-25-2025 Benzodiazepines Ql (U) Negative < 200 ng/mL [facility] Urine cocaine levelOrdered B y: Karen Aj on 04-25-2025 Cocaine Ql (U) Negative < 300 ng/mL [facility] Urine cultureOrdered By: Aníbal Aj on 04-25-2025 Bacteria identified Cx Nom (U) Positive Abnormal [facility] Urine nuosb-9-eqvkzocmjbqsmg abinol (THC) measurementOrdered By: Karen Aj on 04-25-2025 Cannabinoids Screen Ql (U) Positive < 50 ng/mL [facility] Comment on above: If confirmation test ing is needed, a separate order will be required to send out testing to the reference laboratory. Urine phencyclidine (PCP) de tectionOrdered By: Karen Aj on 04-25-2025 Phencyclidine Ql (U) Negative < 25 ng/mL [facility] Office Visit Reporton [address] [facility] [address] [place] [address] OFFICE VISIT Date of Service: 04/25/25 MR#: [id number] Acct: [id number] Patient: PRESLEY FRANCE Rep #: [id number] : 2005 Provider: PHUONG Koehler ams Age/Sex: 19/F [place] [facility] [place]: Signed Intake Vital Signs 12/02/22 13:10 04/09/25 09:41 Height 5 ft 5 in 5 ft 3.5 in Weight: 104 lb 5 oz BMI 18.1 BP 110/60 Blood Pressure Location Lt brachial Position Sitting Intake Visit Reasons: *NEW* NOB LMP 7, ANNI 11/29 Chief Complaint: new . Extreme nausea daily. Boiler Attendant Required: No Accompanied by: Is patient in pain?: No Allergies No Known Allergies Allergy (Verified 04/09/25 09:43) Medications ???Medication ???Instructions ???Recorded ???Confirmed ???Type fluoxetine 20 mg capsule 20 mg PO QDAY 04/09/25 04/09/25 Hi story multivit-min no.71-iron fum 28 cap PO 04/09/25 04/09/25 History mg-folate no.1 1 mg-dha 300 mg capsule (PNV-Mcintosh) promethazine 25 mg tablet 25 mg PO TID PRN nausea and Rx vomiting, and anxiety #60 tabs Is last menstrual period known: Yes Last menstrual period: 02/22/25 Post menopausal: No Patient : Yes Nurse's Note: Pt here for secondary amenorrhea. Vitals WNL. PNOB questions completed. Problem list, allergies, and medications updated. First trimester ACOG education completed. Assessment and Plan Assessment and Plan Orders: Orders CBC W/Diff, Automated 04/09/25 O09.90 - Supervision of high risk , unspecified, unspecified trimester Type Screen 04/09/25 O09.90 - Supervision of high risk , unspecified, unspecified trimester Rubella IgG 04/09/25 O09.90 - Supervision of high risk , unspecified, unspecified trimester Hepatitis C Antibody 04/09/25 O09.90 - Supervision of high risk , unspecified, unspecified trimester Hepatitis B Surface Antigen 04/09/25 O09.90 - Supervision of high risk , unspecified, unspecified trimester Culture, Urine 04/09/25 O09.90 - Supervision of high risk , unspecified, unspecified trimester Syphilis Antibodies 04/09/25 O09.90 - Supervision of high risk , unspecified, unspecified trimester Chlamydia/GC ROOPA aptima 04/09/25 O. - Supervision of high risk , unspecified, unspecified trimester HIV 04/09/25 O09.90 - Supervision of high risk , unspecified, unspecified trimester Iron+Iron Binding Capacity 04/09/25 O09.90 - Supervision of high risk , unspecified, unspecified trimester, R63.6 - Underweight, Z68.1 - Body mass index [BMI] 19.9 or less, adult Vitamin B1, Thiamine 04/09/25 O09.90 - Supervision of high risk , unspecified, unspecified trimester, R63.6 - Underweight, Z68.1 - Body mass index [BMI] 19.9 or less, adult Vitamin B12 04/09/25 O09.90 - Supervision of high risk , unspecified, unspecified trimester, R63.6 - Underweight, Z68.1 - Body mass index [BMI] 19.9 or less, adult Urine Drug Screen 04/09/25 F12.90 - Cannabis use, unspecified, uncomplicated, O09.90 - Supervision of high risk , unspecified, unspecified trimester CEFERINO 04/09/25 O09.90 - Supervision of high risk , unspecified, unspecified trimester 04/12/25 1534 Date Ellie Aj CNM Cosigner Signature: Date (if applicable) CC: Normal [facility] Neisseria gonorrhoeae genita l PCROrdered By: Verena Byrnes on 06-14-2023 N. gonorrhoeae DNA ROOPA+probe Ql (Genital specimen) [facility] No Panel InformationOrdered By: Verena Byrnes on 06-14-2023 Chlamydia trachomatis (PCR) [facility] Endomysial IgA Abon 01-29-20 23 Endomysial IgA Ab Negative Normal Negative [facility] Comment on above: Result Comment: A ne gative serum IgA endomysial antibody is usually seen in normal individuals, however a diagnosis of celiac disease, dermatitis herpetiformis and other gluten sensitive disorders cannot be completely excluded, as this test may be negative in a subset of individuals with these disorders. If the clinical suspicion for one of these disorders is high, recommend further testing for gluten sensitivity as indicated by the Celiac Disease Comprehensive Metaline ([place] [facility] Code CDCOM). In addition serum IgA endomysial antibody may also be negative in gluten-sensitive patients (with celiac disease, dermatitis herpetiformis or other gluten-sensitive disorders), who adhere to a strict gluten-free diet. ADDITIONAL INFORMATION This test has been modified from the cooler room worker's instructions. Its performance characteristics were determined by [facility] in a manner consistent with CLIA requirements. This test has not been cleared or approved by the U.S. Food and Drug Administration. Test Performed by: [facility] [place] [address] Document Design Specialist: Hudson Moe M.D. Ph.D.; CLIA# [id number] Performed By: #### E NDOM #### [address] [address] Transglutaminase IgAon 01-27 Transglutaminase IgA 1.72 AU/mL Normal 0.00-8.99 [facility] Comment on above: Result Comment: NEGATIVE Interpretation of Results: Negative: <9.0 AU/mL Equivocal: 9.0-16.0 AU/mL Positive: >16.0 AU/mL Method: The anti-tTG antibodies were determined using an INOCENCIO-based commercially available kit ([facility]). Performed By: #### T RGLA #### [address] [address] Basic Metabolic Panelon Urea nitrogen [Mass/Vol] 8 mg/dL Normal 4-[address] [facility] Comment on above: Performed By: #### B MP #### [address] [address] Calcium [Mass/Vol] 9.1 mg/dL Normal 7.6-11.[address] [facility] Comment on above: Performed By: #### B MP #### [address] [address] CO2 [Moles/Vol] 19.8 mmol/L Low 22.0-29.[address] [facility] Comment on above: Performed By: #### B MP #### [address] [address] Creatinine [Mass/Vol] 0.60 mg/dL Normal 0.50-1.00 [facility] Comment on above: Performed By: #### B MP #### [address] [address] Glucose [Mass/Vol] 93 mg/dL Normal 70-[address] [facility] Comment on above: Result Comment: Aliya kowalski for Diagnosis of Diabetes: Fasting Specimen (no caloric intake for at least 8 hours): <100 mg/dL Normal 100-125 mg/dL Increased risk for Diabetes >125 mg/dL Diagnostic for Diabetes Random Glucose (any time of day without regard to last meal): > or = 200 mg/dL plus Classic Symptoms of Diabetes Performed By: #### B MP #### [facility] [address] [place], [place] [id number] Chloride [Moles/Vol] 107 mmol/L Normal 96-108 [facility] Comment on above: Performed By: #### B MP #### [address] [id number] Potassium [Moles/Vol] 3.8 mmol/L Normal 3.3-5.1 [facility] Comment on above: Performed By: #### B MP #### [facility] [address] [place] [address] Sodium [Moles/Vol] 140 mmol/L Normal 133-[address] [facility] Comment on above: Performed By: #### B MP #### [address] [address] Calcium [Mass/Vol] 9.1 mg/dL 7.6 - 11. 0 mg/dL [facility] Chloride [Moles/Vol] 107 mmol/L 96 - 10 8 mmol/L [facility] CO2 [Moles/Vol] 19.8 mmol/L Low 22.0 - 29.0 mmol/L [facility] Creatinine [Mass/Vol] 0.60 mg/dL 0.50 - 1.00 mg/dL [facility] Glucose [Mass/Vol] 93 mg/dL 70 - 99 mg/dL [facility] Comment on above: Criteria for Diagnos is of Diabetes: Fasting Specimen (no caloric intake for at least 8 hours): <100 mg/dL Normal 100-125 mg/dL Increased risk for Diabetes >125 mg/dL Diagnostic for Diabetes Random Glucose (any time of day without regard to last meal): > or = 200 mg/dL plus Classic Symptoms of Diabetes Potassium [Moles/Vol] 3.8 mmol/L 3.3 - 5.1 mmol/L [facility] Sodium [Moles/Vol] 140 mmol/L 133 - 145 mmol/L [facility] Urea nitrogen [Mass/Vol] 8 mg/dL 4 - 19 mg/dL [facility] C-Reactive Proteinon 023 CRP [Mass/Vol] mg/L Normal 0.0-1.[address] [facility] Comment on above: Result Comment: CRP determinations in neonates should be interpreted with caution. CRP may be elevated in circumstances not associated with inflammation (e.g. difficult delivery, pneumothorax). In premature neonates CRP levels may not rise to abnormal levels even if sepsis is present; some speculate that immature liver function decreases the ability to generate a CRP response. Performed By: #### C RP #### [address] [address] C-reactive proteinon 023 CRP [Mass/Vol] mg/L 0.0 - 1.0 mg/dL [facility] Comment on above: CRP determinations i n neonates should be interpreted with caution. CRP may be elevated in circumstances not associated with inflammation (e.g. difficult delivery, pneumothorax). In premature neonates CRP levels may not rise to abnormal levels even if sepsis is present; some speculate that immature liver function decreases the ability to generate a CRP response. Complete Blood Counton 01-26 Differential Complete Automated Normal [facility] Comment on above: Performed By: #### C BC #### [address] [address] Basophils/100 WBC (Bld) 0.40 % Normal 0.00-1.[address] [facility] Comment on above: Performed By: #### C BC #### [address] [address] Eosinophils/100 WBC (Bld) 0.70 % Normal 0.00-3.[address] [facility] Comment on above: Performed By: #### C BC #### [address] [address] Erythrocyte distribution width (RBC) [Ratio] 14.3 % Normal 0.0-14.[address] [facility] Comment on above: Performed By: #### C BC #### [address] [id number] Hematocrit (Bld) [Volume fraction] 43.7 % Normal 37.0-46.[address] [facility] Comment on above: Performed By: #### C BC #### [address] [address] Hemoglobin (Bld) [Mass/Vol] 14.9 g/dL Normal 12.0-15.[address] [facility] Comment on above: Performed By: #### C BC #### [address] [id number] Immature granulocytes/100 WBC (Bld) 0.10 % Normal [facility] Comment on above: Result Comment: [place] ture Granulocyte Percent includes promyelocytes, myelocytes, and metamyelocytes. IG% > 1.0 indicates a left shift is present. With automated differentials, bands are included in the neutrophil count and not in the Immature Granulocyte Percent. Performed By: #### C BC #### [address] [address] Lymphocytes/100 WBC (Bld) 43.4 % Normal 25.0-45.[address] [facility] Comment on above: Performed By: #### C BC #### [address] [id number] MCH (RBC) [Entitic mass] 29.7 pg Normal 25.0-35.[address] [facility] Comment on above: Performed By: #### C BC #### [address] [id number] MCHC 34.1 % Normal 31.0-37.[address] [facility] Comment on above: Performed By: #### C BC #### [address] [id number] MCV (RBC) [Entitic vol] 87.1 fL Normal 78.0-96.[address] [facility] Comment on above: Performed By: #### C BC #### [address] [address] Monocytes/100 WBC (Bld) 10.00 % High 3.00-6.[address] [facility] Comment on above: Performed By: #### C BC #### [address] [address] Neutrophils (Bld) [#/Vol] 3.0 10*3/uL Normal 1.8-7.[address] [facility] Comment on above: Performed By: #### C BC #### [address] [address] Neutrophils/100 WBC (Bld) 45.4 % Normal 34.0-64.[address] [facility] Comment on above: Performed By: #### C BC #### [address] [address] Nucleated RBC/100 WBC (Bld) [Ratio] 0.0 % Normal -1.0-0.[address] [facility] Comment on above: Performed By: #### C BC #### [address] [address] Platelet mean volume (Bld) [Entitic vol] 10.5 fL Normal [facility] Comment on above: Result Comment: MPV is platelet range and age dependent Performed By: #### C BC #### [address] [address] Platelets (Bld) [#/Vol] 239 10*3/uL Normal 150-[address] [facility] Comment on above: Performed By: #### C BC #### [address] [address] RBC 5.02 10E12/L High 4.10-4.[address] [facility] Comment on above: Performed By: #### C BC #### [facility] [address] [place] [address] WBC (Bld) [#/Vol] 6.7 10*3/uL Normal 4.5-13.[address] [facility] Comment on above: Performed By: #### C BC #### [facility] [address] [place] [address] Complete Blood Count with Di fferentialon 01-26-2023 Basophils/100 WBC (Bld) 0.40 % 0.00 - 1.00 % [facility] Differential Complete Automated Mar [facility] Eosinophils/100 WBC (Bld) 0.70 % 0.00 - 3.00 % [facility] Erythrocyte distribution width (RBC) [Ratio] 14.3 % 0.0 - 14.4 % [facility] Hematocrit (Bld) [Volume fraction] 43.7 % 37.0 - 46.0 % [facility] Hemoglobin (Bld) [Mass/Vol] 14.9 g/dL 12.0 - 15.0 g/dl [facility] Immature granulocytes/100 WBC (Bld) 0.10 % [facility] Comment on above: Immature Granulocyte Percent includes promyelocytes, myelocytes, and metamyelocytes. IG% > 1.0 indicates a left shift is present. With automated differentials, bands are included in the neutrophil count and not in the Immature Granulocyte Percent. Interpretation and review of laboratory results Abnormal [facility] Lymphocytes/100 WBC (Bld) 43.4 % 25.0 - 45.0 % [facility] MCH (RBC) [Entitic mass] 29.7 pg 25.0 - 35.[address] [facility] MCHC 34.1 % 31.0 - 37.0 % [facility] MCV (RBC) [Entitic vol] 87.1 fL 78.0 - 96.[address] [facility] Monocytes/100 WBC (Bld) 10.00 % High 3.00 - 6.00 % [facility] Neutrophils (Bld) [#/Vol] 3.0 10*3/uL [facility] Neutrophils/100 WBC (Bld) 45.4 % 34.0 - 64.0 % [facility] Nucleated RBC/100 WBC (Bld) [Ratio] 0.0 % -1.0 - 0.0 % [facility] Platelet mean volume (Bld) [Entitic vol] 10.[address] [facility] Comment on above: MPV is platelet range and age dependent Platelets (Bld) [#/Vol] 239 10*3/uL [facility] RBC (Bld) [#/Vol] 5.02 10*6/uL High [facility] WBC (Bld) [#/Vol] 6.7 10*3/uL [facility] Ferritinon 01-26-2023 Ferritin [Mass/Vol] 13 ng/mL Low 25-[address] [facility] Comment on above: Performed By: #### L IVER #### [address] [id number] Ferritin [Mass/Vol] 13 ng/mL Low 25 - 207 ng/mL [facility] Hepatic Panelon 01-26-2023 Bili, Conjugated <0.2 Normal 0.0-0.[address] [facility] Comment on above: Performed By: #### L IVER #### [address] [id number] Albumin [Mass/Vol] 4.1 g/dL Normal 3.2-4.[address] [facility] Comment on above: Performed By: #### L IVER #### [address] [id number] ALP [Catalytic activity/Vol] 50 U/L Normal 43-[address] [facility] Comment on above: Performed By: #### L IVER #### [address] [id number] ALT [Catalytic activity/Vol] 10 U/L Normal 0-[address] [facility] Comment on above: Performed By: #### L IVER #### [place] [address] AST [Catalytic activity/Vol] 21 U/L Normal 0-[address] [facility] Comment on above: Performed By: #### L IVER #### [place] [address] Bili,Total 0.3 mg/dL Normal 0.0-1.[address] [facility] Comment on above: Performed By: #### L IVER #### [place] [address] Protein [Mass/Vol] 6.9 g/dL Normal 6.0-8.[address] [facility] Comment on above: Performed By: #### L IVER #### [place] [address] Hepatic function panelon Albumin [Mass/Vol] 4.1 g/dL 3.2 - 4.5 g/dL [facility] ALP [Catalytic activity/Vol] 50 U/L 43 - 83 U/L [facility] ALT [Catalytic activity/Vol] 10 U/L 0 - 34 U/L [facility] AST [Catalytic activity/Vol] 21 U/L 0 - 31 U/L [facility] Bilirubin [Mass/Vol] 0.3 mg/dL 0.0 - 1 .0 mg/dL [facility] Bilirubin, Conjugated mg/dL 0.0 - 0.7 mg/dL [facility] Protein [Mass/Vol] 6.9 g/dL 6.0 - 8.0 g/dL [facility] Immunoglobulin Aon 3 Immunoglobulin A 376 mg/dL High 61-[address] [facility] Comment on above: Performed By: #### L IVER #### [place] [address] Immunoglobulin A 376 mg/dL High 61 - 348 mg/dL [facility] Interpretation and review of laboratory results Abnormal [facility] Ironon 01-26-2023 %Saturation 15 % Normal 13-[address] [facility] Comment on above: Performed By: #### I AMBER #### [address] [id number] TIBC 441 ug/dL High 228-[address] [facility] Comment on above: Performed By: #### I AMBER #### [address] [address] Iron [Mass/Vol] 65 ug/dL Normal 30-[address] [facility] Comment on above: Performed By: #### I AMBER #### [address] [id number] % Saturation 15 % 13 - 59 % [facility] Iron [Mass/Vol] 65 ug/dL 30 - 160 ug/dL [facility] TIBC 441 ug/dL High 228 - 428 ug/dL [facility] No Panel Informationon 01-26 Interpretation and review of laboratory results Abnormal [facility] POCT urine HCGOrdered By: Sidney Doe on 01-26-2023 Clear Background *Present [facility] Control Line *Present [facility] HCG ( test) Ql (U) Negative Negative [facility] Interpretation and review of laboratory results Normal [facility] LOT # [id number] [facility] Prealbuminon 01-26-2023 Prealbumin [Mass/Vol] 28 mg/dL Normal 20-42 Mar [facility] Comment on above: Performed By: #### P ALB #### [address] [address] Prealbumin [Mass/Vol] 28 mg/dL 20 - 4 2 mg/dL [facility] Surgical Pathology Teston Surgical Pathology Test SEE BELOW Normal [facility] Comment on above: Result Comment: RICHARD Prince DIAGNOSIS: A. Esophagus, proximal, biopsies: -Squamous mucosa with no significant histopathologic changes. B. Esophagus, distal, biopsy: -Squamous mucosa with no significant histopathologic changes. C. Stomach, biopsies: -Gastric antral and fundic mucosa with no significant histopathologic changes. D. Small bowel, duodenum, biopsies: -Duodenal mucosa with no significant histopathologic changes. B. Esophageal polyp, biopsy: -Polypoid fragment of gastroesophageal junction with mild chronic active inflammation. SPECIMEN: A. ESOPHAGEAL BIOPSY- proximal B. ESOPHAGEAL BIOPSY- distal C. STOMACH, BIOPSY D. DUODENAL BIOPSY E. POLYP DATE OF SURGERY: 01/26/2023 CLINICAL INFORMATION: Vomiting, unspecified type, unspecified whether nausea present, generalized abdominal pain. GROSS DESCRIPTION: A. Received in formalin labeled with the patient's name and proximal esophagus are two shi soft tissue fragments aggregating to 0.1 x 0.1 x 0.1 cm. They are totally submitted in one cassette. B. Received in formalin labeled with the patient's name and distal esophagus is a shi soft tissue fragment measuring 0.1 x 0.1 x 0.1 cm. It is totally submitted in one cassette. C. Received in formalin labeled with the patient's name and stomach are two shi soft tissue fragments aggregating to 0.3 x 0.1 x 0.1 cm. They are totally submitted in one cassette. D. Received in formalin labeled with the patient's name and duodenum are two shi soft tissue fragments aggregating to 0.3 x 0.1 x 0.1 cm. They are totally submitted in one cassette. E. Received in formalin labeled with the patient's name and esophagus polyp is a shi soft tissue fragment measuring 0.1 x 0.1 x 0.1 cm. It is totally submitted in one cassette. MICROSCOPIC EXAMINATION: Microscopic slides reviewed. STAINS AND PROCEDURES: Stains performed have adequate controls. Testing using analyte specific reagents was developed and its performance characteristics determined by the department of Pathology of [facility]. It has not been specifically cleared or approved by the [place]. FDA. The FDA has determined such clearance or approval is not necessary. EMANI JUNIOR DO 01/27/2023 Performed By: #### L CONRADOER #### [address] [address] TSH with Reflex to T4, Freeo n 01-26-2023 TSH with reflex to T4, Free 1.[address] [facility] TSH with reflex T4FRon 01-26 TSH with reflex T4FR 1.420 uIU/mL Normal 0.500-4.300 [facility] Comment on above: Performed By: #### L IVER #### [address] [address] Vitamin D 25 OHon 01-26-2023 25 [place] Vitamin D 30 ng/mL Normal 30-[address] [facility] Comment on above: Result Comment: Refe rence ranges provided by [facility] Laboratory are based on Endocrine Society Guidelines: Level: Characterization < 21 ng/mL: Vitamin D deficiency 21-29 ng/mL: Suboptimal Vitamin D status 30-100 ng/mL: Optimal Vitamin D status >100 ng/mL: Potentially toxic Vitamin D effects Performed By: #### V 25DH #### [address] [address] Vitamin D 25 hydroxyon 01-26 25 [place] Vitamin D 30 ng/mL 30 - 100 ng/mL [facility] Comment on above: Reference ranges pro vided by [facility] Laboratory are based on Endocrine Society Guidelines: Level: Characterization < 21 ng/mL: Vitamin D deficiency 21-29 ng/mL: Suboptimal Vitamin D status 30-100 ng/mL: Optimal Vitamin D status >100 ng/mL: Potentially toxic Vitamin D effects ABDOMEN 1 VIEWon 12-09-2022 ABDOMEN 1 VIEW CLINICAL HISTORY: abdominal pain COMPARISON: None IMPRESSION: Single AP supine view of the abdomen was performed and presented on 2 images. There is no overt increase in degree of stool loading. Bowel gas pattern is nonobstructed. No abnormal calcifications. Mild spinal curvature noted. Lung bases are clear. This report has been created using voice recognition software Signed by: Dr. Albania Nguyen at 12/09/2022 15:[address] [facility] CHEST AP ONLYon 12-09-2022 CHEST AP ONLY CLINICAL HISTORY: vo miting COMPARISON: None. FINDINGS: Single frontal view of the chest was performed. The cardiothymic silhouette is not enlarged. No lobar consolidation, pleural fluid or pneumothorax. There is dextroconvex scoliosis of the thoracic spine with a Borges angle of 17 degrees measured from the superior endplate of T5 to the inferior endplate of T12. IMPRESSION: Clear lungs. This report has been created using voice recognition software Signed by: Dr. Albania Nguyen at 12/09/2022 14:[address] [facility] Progress Noteon 12-09-2022 Ring Packer Authentication Interface Message Text Presley France is here for follow-up for: Results and Abdominal Pain History of Present Illness This is a 17 year old female being seeing today in follow up gastroenterology clinic for her nausea and vomiting. No illness recently. Diet-no appetite at all, 2 times a day - if she pushes herself Vomiting- always nauseated after eating, vomiting and dry heaving has come back over the last year and has gotten progressively worse, not happening daily but always nauseated, 2 times a week, can be a gag or dry heave and when bad can be a big vomit, mornings and after eating are the worse, feels like pills getting stuck going down Abdominal pains- nausea feeling in the stomach not really pains BM- no constipation, diarrhea common, loose stools, 1-2 times a day, no urgency, no nighttime stooling She is accompanied by her mother. Results Presenting symptoms include weight loss. Presenting symptoms do not include blood in stool, hematemesis, jaundice and nausea. Patient denies abdominal pain. Patient complains of vomiting. The onset of vomiting is (1 year ) The frequency of vomiting is 2 times a week. The patient's last emesis was 1 days ago. Vomiting occurs in the morning and after eating. The emesis is not described as heme, bile, brown, black, regurgitation or projectile. Other symptoms associated with vomiting include chest pain, feeling of food stuck, heartburn, weight loss and nausea. She denies dysphagia. Patient complains of diarrhea (recenlty). Patient denies constipation. She has 1 stools per day. Her stool is loose. There is no blood in her stool. Soiling noted: none. Additional symptoms related to bowel movement include weight loss. Patient receives nutrition orally. Presley's current eating habits are having a decreased appetite. Previous medications include proton pump inhibitors. Previous imaging includes no new imaging since last visit. Other previous testing includes EGD. Abdominal Pain Past Medical History Past Medical History: Diagnosis Date Gastroesophageal reflux disease without esophagitis Past Surgical History Past Surgical History: Procedure Laterality Date UPPER GASTROINTESTINAL ENDOSCOPY N/A 02/18/2021 ENDOSCOPY UPPER (FLEXIBLE) with biopsies performed by Cuco Gan DO at [facility] Allergies No Known Allergies Medications Outpatient Encounter Medications as of 12/09/2022 Medication Sig Dispense Refill FLUoxetine (PROZAC) 20 MG capsule esomeprazole (NEXIUM) 40 MG capsule Take 1 Capsule (40 mg) by mouth daily 30 Capsule 3 hyoscyamine (LEVSIN) 0.125 MG TABS tablet Take 1 Tablet (0.125 mg) by mouth every 6 hours as needed for Other (abdominal pain, nausea) 90 Tablet 2 escitalopram (LEXAPRO) 10 MG tablet Take by mouth daily [DISCONTINUED] omeprazole (PRILOSEC OTC) 20 MG tablet Take 40 mg by mouth daily (Patient not taking: Reported on 03/31/2021) No facility-administered encounter medications on file as of 12/09/2022. Family Medical History Family History Problem Relation Age of Onset Gastroesophageal reflux Mother High Cholesterol Mother Gastroesophageal reflux Maternal Aunt Gastroesophageal reflux Maternal Grandmother High Cholesterol Father Asthma Father No known problems Brother No known problems Brother Eosinophilic Esophagitis Neg Hx Crohn's Disease Neg Hx Ulcerative Colitis Neg Hx Thyroid Disease Neg Hx Celiac Disease Neg Hx Anesth Problems Neg Hx Bleeding Problem Neg Hx Social History Social History Socioeconomic History Marital status: Single Spouse name: None Number of children: None Years of education: None Highest education level: None Tobacco Use Smoking status: Never Passive exposure: Yes Smokeless tobacco: Never Diet Patient drinks milk, eats cheese, ice cream? Yes Do dairy products cause problems? No Does patient have dietary restrictions? No Patient on nutritional supplements? No Patient on tube feeds? No Social History Who lives in the household? mom & stepdad, brother & sister Are there pets in the home? Yes dog, cat Has patient traveled out of the country? No Water source for child? Bottled water Has the patient ever been hospitalized? No Alternative meds, herbals, OTC meds and vitamins documented in medication section? No Review of Systems Review of Systems Constitutional: Positive for weight loss. Negative for recurrent fevers, weight gain and malaise/fatigue. HENT: Positive for sour taste. Negative for mouth sores and trouble swallowing. Eyes: Negative. Respiratory: Negative for coughing and wheezing. Cardiovascular: Negative for heart murmur and chest pain. Endocrine: Negative for poor growth. Gastrointestinal: Positive for heartburn and abdominal pain. Negative for constipation, diarrhea, vomiting, blood in stool, trouble swallowing and nausea. Genitourinary: Negative for dysuria and hematuria. Neurological: Negative for headaches, seizures, (more content not included)... Normal [facility] Unspecified body region N o chargeon 12-09-2022 IMPRESSION: Clear umesh ngs. This report has been created using voice recognition software [facility] CLINICAL HISTORY: vo miting COMPARISON: None. FINDINGS: Single frontal view of the chest was performed. The cardiothymic silhouette is not enlarged. No lobar consolidation, pleural fluid or pneumothorax. There is dextroconvex scoliosis of the thoracic spine with a Borges angle of 17 degrees measured from the superior endplate of T5 to the inferior endplate of T12. [facility] Radiology Study observation (narrative) [facility] Unspecified body region N o chargeOrdered By: Albania Nguyen on 12-09-[address] [facility] Work Phone: XR Abdomen Viewson 3 IMPRESSION: Single A P supine view of the abdomen was performed and presented on 2 images. There is no overt increase in degree of stool loading. Bowel gas pattern is nonobstructed. No abnormal calcifications. Mild spinal curvature noted. Lung bases are clear. This report has been created using voice recognition software [facility] CLINICAL HISTORY: abdominal pain COMPARISON: None [facility] Albania Nguyen, DO - 12/09/2022 CLINICAL HISTORY: abdominal pain COMPARISON: None IMPRESSION: Single AP supine view of the abdomen was performed and presented on 2 images. There is no overt increase in degree of stool loading. Bowel gas pattern is nonobstructed. No abnormal calcifications. Mild spinal curvature noted. Lung bases are clear. This report has been created using voice recognition software [facility] Radiology Study observation (narrative) [facility] XR Abdomen ViewsOrdered By: Albania Nguyen on 12-09-[address] [facility] Work Phone: Basophil percentageOrdered B y: Dr. Byrnes on 10-07-2022 C. trachomatis DNA ROOPA+probe Ql (Unsp spec) Negative Negative [facility] Neisseria gonorrhoeae detect ion by PCROrdered By: Dr. Byrnes on 10-07-2022 N. gonorrhoeae DNA ROOPA+probe Ql (Cervical mucus) Negative Negative [facility] - Microbiology an d Antimicrobial susceptibilityon 09-22-2022 SARS-CoV-2 (COVID-19) RNA ROOPA+probe Ql (Unsp spec) Not detected [facility] No Panel Informationon 09-22 Influenza Types A,B Rapid (Clinic) Not detected [facility] No Panel Informationon 06-22 POC SARS CoV-2 Antigen Negative [facility] Basophil percentageon 2021 Bilirubin [Mass/Vol] 0.50 mg/dL 0.20-1.00 [facility] Work Phone: Comment on above: For patients on eltr ombopag therapy, use of Dimension Winger TBIL is not recommended. Chloride [Moles/Vol] 106 mmol/L 98-107 [facility] Work Phone: Glucose [Mass/Vol] 117 mg/dL 74-106 [facility] Work Phone: Comment on above: Fasting Glucose resu lt from 100 to 125 mg/dL suggests IMPAIRED HOMEOSTASIS per A.D.A. criteria. Potassium [Moles/Vol] 3.7 mmol/L 3.5-5.1 [facility] Work Phone: Protein [Mass/Vol] 8.0 g/dL 6.4-8.2 [facility] Work Phone: Sodium [Moles/Vol] 139 mmol/L 136-145 [facility] Work Phone: Laboratory - Chemistry and C hemistry - challengeon 06-17-2022 ALP [Catalytic activity/Vol] 70 U/L 47-119 [facility] Work Phone: ALT [Catalytic activity/Vol] 14 U/L 13-56 [facility] Work Phone: CO2 [Moles/Vol] 27.0 mmol/L 21.0-32.0 [facility] Work Phone: Globulin (S) [Mass/Vol] 4.7 g/dL 2.2-4.2 [facility] Work Phone: Urea nitrogen/Creatinine [Mass ratio] 10.9 mg/mg 10-20 [facility] Work Phone: No Panel Informationon 06-17 Estimated GFR (MDRD) [facility] Work Phone: Comment on above: Test not performedAf rican Georgian GFR Calc Estimated GFR (MDRD) Non-Af [facility] Work Phone: Comment on above: Test not performedNo n- GFR Calc Thyroid Stimulating Hormone (TSH) 0.46 uIU/mL 0.358-3.74 [facility] Work Phone: Vitamin D 25-Hydroxy 26.5 ng/mL [facility] Work Phone: Comment on above: Vitamin D 25(OH) Sta tus Range Deficiency <20 ng/mL (50nmol/L) Insufficiency 20 - 30 ng/mL (50 - 75 nmol/L) Sufficiency 30 - 100 ng/mL (75 - 250 nmol/L) Toxicity >100 ng/mL (>250 nmol/L) Serum or plasma albumin julian urement (mass/volume)on 06-17-2022 Albumin [Mass/Vol] 3.3 g/dL 3.2-5.0 [facility] Work Phone: Serum or plasma albumin/glob ulin mass ratioon 06-17-2022 Albumin/Globulin [Mass ratio] 0.7 {ratio} 0.9-2.4 [facility] Work Phone: Serum or plasma calcium julian urement (mass/volume)on 06-17-2022 Calcium [Mass/Vol] 9.4 mg/dL 8.5-10.1 [facility] Work Phone: Serum or plasma creatinine m easurement (mass/volume)on 06-17-2022 Creatinine [Mass/Vol] 0.74 mg/dL 0.55-1.02 [facility] Work Phone: Comment on above: The validity of the calculated GFR & GFRAA in patients over 70 years has not been determined. Clinical correlation is essential. Serum or plasma urea nitroge n measurement (mass/volume)on 06-17-2022 Urea nitrogen [Mass/Vol] 8 mg/dL 7-18 [facility] Work Phone: Thin prep Papanicolaou smear with manual screeningon 06-17-2022 Thin prep Papanicolaou smear with manual screening 11 U/L 15-37 [facility] Work Phone: Thin prep Papanicolaou smear with manual screening 6 5-15 [facility] Work Phone: EMERGENCY REPORTon 2 EMERGENCY REPORT [facility] EMERGENCY ROOM REPORT NAME ACCOUNT SEX AGE ADMIT DISCHARGE PT MED. RECORD# NUMBER DATE DATE TYPE ROMÁN [id number] F 16 03/01/22 03/01/22 3 [facility] [id number] ROOM: ER DATE OF : 2005 DICTATING PHYSICIAN: Christian Denis HISTORY OF PRESENT ILLNESS: This is a 16-year-old female patient without relevant past medical history who presents right-sided great toe swelling. She reports over 5 days of swelling and redness of her toe. She does not know exactly how it happened. She denies any kind of injury. She has been without fever or chills, nausea or vomiting. She is able to ambulate without difficulty. She works on her feet all day at [employer]. She has not injured this toe before. She reports the toe is painful and worse with movement, better with rest. She has not attempted any interventions with it. PAST MEDICAL HISTORY: She denies any other pertinent medical history. She does have a history of GERD, depression, and anxiety. PAST SURGICAL HISTORY: No previous surgical history. MEDICATIONS: She is not on any current medications. SOCIAL HISTORY: Vaccinations are up-to-date. PHYSICAL EXAMINATION: VITAL SIGNS: Temperature of 97.9, pulse 97, respirations 19, blood pressure 106/87, and O2 saturation of 97% on room air. GENERAL APPEARANCE: She is resting comfortably. CARDIAC: Heart is regular rate and rhythm. LUNGS: Clear to auscultation bilaterally. SKIN: Normal capillary refill. DP/PT pulses intact. On the right great toe examination, the distal toe is erythematous with redness on the dorsal and plantar aspect. There is no lymphatic streaking, but significant erythema around the medial aspect of the nail bed with what looks like pus as well. The nail is intact. There is normal sensation to light touch. MEDICAL DECISION MAKING/EMERGENCY DEPARTMENT COURSE AND TREATMENT: We were going to perform a digital block and drain for likely a paronychia, but the patient does not want a needle stick at this time. She would just perform antibiotics, and she will try warm soaks and topical antibiotics at home as well too. This is a 16-year-old female patient who presents with what looks to be paronychia. Other differentials considered include, but not limited to fungal infection, cellulitis, MRSA infection, necrotizing fasciitis. The toe is red and swollen and painful to manipulate. The patient wishes not to have what appears to be paronychia drained. She would rather Page 1 of 2 [facility] : 2005 attempt antibiotics at first, and I find this reasonable. PLAN/DISPOSITION: I prescribed her Augmentin for 7 days, and instructions for warm soaks and topical antibiotics. She is to followup with her regular care physician. I also instructed her to come back to the emergency department for any worsening symptoms, for which she and her mom, who is at bedside, endorse good understanding. She was discharged in stable condition. Dictated By: Christian Denis MD 03/01/22 21:38 JOB #: [id number] Transcribed By: [email or web address] 03/02/22 12:14 Electronically signed by: Dr. Rozina Denis MD 03/04/22 01:33 Page 2 of 2 [facility] Report Normal [facility] Coronavirus 2019on 1 COVID 19 Result [employer]ATION [employer]ANT Normal Negative for COVID19 (SARS CoV2) by PCR. [facility] Reference Lab Comment on above: Result Comment: Nega tive for This test was developed and its performance characteristics determined by [facility]'s [facility] Pathology and Laboratory Medicine [place]. This test has been authorized by FDA under an Emergency Use Authorization (EUA). This test has been validated in accordance with the FDA's Guidance Document Policy for Diagnostics Testing in Laboratories Certified to Perform High Complexity Testing under CLIA prior to Emergency use Authorization for Coronavirus Disease 2019 during the Public Health Emergency issued on October 20, 2019. COVID19 (SARS This test was developed and its performance characteristics determined by [facility] Pathology [facility] Laboratory [facility] [place]. This test has been authorized by FDA under an Emergency Use Authorization (EUA). This test has been validated in accordance with the FDA's Guidance Document Policy for Diagnostics Testing in Laboratories Certified to Perform High Complexity Testing under CLIA prior to Emergency use Authorization for Coronavirus Disease 2019 during the Public Health Emergency issued on October 20, 2019. CoV2) by PCR. This test was developed and its performance characteristics determined by [facility] Pathology and Laboratory [facility] [place]. This test has been authorized by FDA under an Emergency Use Authorization (EUA). This test has been validated in accordance with the FDA's Guidance Document Policy for Diagnostics Testing in Laboratories Certified to Perform High Complexity Testing under CLIA prior to Emergency use Authorization for Coronavirus Disease 2019 during the Public Health Emergency issued on October 20, 2019. COVID 19 Source [employer]IATION CONSULTANT Normal [facility] Reference Lab Comment on above: Result Comment: Naso pharyngeal Corrected on 09/12 AT 0054: Previously reported as [employer]ATION CONSULTANT SWAB Swab Corrected on 09/12 AT 0054: Previously reported as [employer]IATION CONSULTANT SWAB Coronavirus 2019on 0 COVID 19 Result AVIATION CONSULTANT Normal Negative for COVID19 (SARS CoV2) by PCR. [facility] Reference [facility] Comment on above: Result Comment: Nega tive for This test was developed and its performance characteristics determined by [facility] Pathology and Laboratory [facility] [place]. This test has been authorized by FDA under an Emergency Use Authorization (EUA). This test has been validated in accordance with the FDA's Guidance Document Policy for Diagnostics Testing in Laboratories Certified to Perform High Complexity Testing under CLIA prior to Emergency use Authorization for Coronavirus Disease 2019 during the Public Health Emergency issued on October 20, 2019. COVID19 (SARS This test was developed and its performance characteristics determined by [facility] Pathology and Laboratory [facility] [place]. This test has been authorized by FDA under an Emergency Use Authorization (EUA). This test has been validated in accordance with the FDA's Guidance Document Policy for Diagnostics Testing in Laboratories Certified to Perform High Complexity Testing under CLIA prior to Emergency use Authorization for Coronavirus Disease 2019 during the Public Health Emergency issued on October 20, 2019. CoV2) by PCR. This test was developed and its performance characteristics determined by [facility] Pathology and Laboratory [facility] [place]. This test has been authorized by FDA under an Emergency Use Authorization (EUA). This test has been validated in accordance with the FDA's Guidance Document Policy for Diagnostics Testing in Laboratories Certified to Perform High Complexity Testing under CLIA prior to Emergency use Authorization for Coronavirus Disease 2019 during the Public Health Emergency issued on October 20, 2019. Coronavirus 2019on 0 COVID 19 Source AVIATION CONSULTANT Normal [facility] Reference Lab Comment on above: Result Comment: Naso pharyngeal Corrected on 07/16 AT 1420: Previously reported as U Swab Corrected on 07/16 AT 1420: Previously reported as U Vital Signs Date Time Vital Sign Value Performing Clinician Faci lity 05-24-2025 11:32-0400 Body height 161.[address] Verena Byrnes MD Work Phone: [facility] 05-24-2025 11:32-0400 Body mass index (BMI) [Ratio] 19.5 kg/m2 Dr. Verena Byrnes MD Work Phone: [facility] 05-24-2025 11:32-0400 Body weight [address] Verena Byrnes MD Work Phone: [facility] 05-24-2025 11:32-0400 Diastolic blood pressure 71 mm[Hg] Dr. Verena Byrnes MD Work Phone: [facility] 05-24-2025 11:32-0400 Systolic blood pressure 114 mm[Hg] Dr. Verena Byrnes MD Work Phone: [facility] 04-25-2025 08:11-0400 Body height 161.[address] Verena Byrnes MD Work Phone: [facility] 04-25-2025 08:11-0400 Body mass index (BMI) [Ratio] 19.3 kg/m2 Dr. Verena Byrnes MD Work Phone: [facility] 04-25-2025 08:11-0400 Body weight 50.[address] Verena Byrnes MD Work Phone: [facility] 04-25-2025 08:11-0400 Diastolic blood pressure 73 mm[Hg] Dr. Verena Byrnes MD Work Phone: [facility] 04-25-2025 08:11-0400 Systolic blood pressure 113 mm[Hg] Dr. Verena Byrnes MD Work Phone: [facility] 01-26-2023 11:20-0400 Body temperature 97.2 [degF] Melva Meyer MD Work Phone: [facility] 01-26-2023 11:20-0400 Diastolic blood pressure 60 mm[Hg] Melva Meyer MD Work Phone: [facility] 01-26-2023 11:20-0400 Heart rate 69 /min Melva Meyer MD Work Phone: [facility] 01-26-2023 11:20-0400 Respiratory rate 13 /min Melva Meyer MD Work Phone: [facility] 01-26-2023 11:20-0400 SaO2% (BldA) [Mass fraction] 99 % Melva Meyer MD Work Phone: [facility] 01-26-2023 11:20-0400 Systolic blood pressure 93 mm[Hg] Melva Meyer MD Work Phone: [facility] 01-26-2023 08:15-0400 Body height 164 cm Melva Meyer MD Work Phone: [facility] 01-26-2023 08:15-0400 Body mass index (BMI) [Percentile] Per age and sex 9.28 % Melva Meyer MD Work Phone: [facility] 01-26-2023 08:15-0400 Body mass index (BMI) [Ratio] 18.03 kg/m2 Melva Meyer MD Work Phone: [facility] 01-26-2023 08:15-0400 Body weight 48.5 kg Melva Meyer MD Work Phone: [facility] 12-02-2022 15:26-0400 Heart rate 69 /min Dr. Verena Byrnes Work Phone: [facility] 12-02-2022 15:26-0400 Respiratory rate 18 /min Dr. Verena Byrnes Work Phone: [facility] 12-02-2022 15:26-0400 SaO2% (BldA) [Mass fraction] 99 % Dr. Verena Byrnes Work Phone: [facility] 12-02-2022 13:10-0400 Body height 165.[address] Verena Byrnes Work Phone: [facility] 12-02-2022 13:10-0400 Body mass index (BMI) [Percentile] Per age and sex 8.6 % Dr. Verena Byrnes Work Phone: [facility] 12-02-2022 13:10-0400 Body mass index (BMI) [Ratio] 17.9 kg/m2 Dr. Verena Byrnes Work Phone: [facility] 12-02-2022 13:10-0400 Body temperature 98.6 [degF] Dr. Verena Byrnes Work Phone: [facility] 12-02-2022 13:10-0400 Body weight 48.[address] Verena Byrnes Work Phone: [facility] 12-02-2022 13:10-0400 Diastolic blood pressure 86 mm[Hg] Dr. Verena Byrnes Work Phone: [facility] 12-02-2022 13:10-0400 Systolic blood pressure 121 mm[Hg] Dr. Verena Byrnes Work Phone: [facility] 09-22-2022 14:02-0500 Body temperature 98.4 [degF] Dr. Verena Byrnes Work Phone: [facility] 09-22-2022 14:02-0500 Diastolic blood pressure 72 mm[Hg] Dr. Verena Byrnes Work Phone: [facility] 09-22-2022 14:02-0500 Heart rate 107 /min Dr. Verena Byrnes Work Phone: [facility] 09-22-2022 14:02-0500 Respiratory rate 20 /min Dr. Verena Byrnes Work Phone: [facility] 09-22-2022 14:02-0500 SaO2% (BldA) [Mass fraction] 99 % Dr. Verena Byrnes Work Phone: [facility] 09-22-2022 14:02-0500 Systolic blood pressure 108 mm[Hg] Dr. Verena Byrnes Work Phone: [facility] 08-25-2022 15:19-0500 Body temperature 98.4 [degF] Dr. Verena Byrnes Work Phone: [facility] 08-25-2022 15:19-0500 Diastolic blood pressure 70 mm[Hg] Dr. Verena Byrnes Work Phone: [facility] 08-25-2022 15:19-0500 Heart rate 110 /min Dr. Verena Byrnes Work Phone: [facility] 08-25-2022 15:19-0500 Respiratory rate 14 /min Dr. Verena Byrnes Work Phone: [facility] 08-25-2022 15:19-0500 SaO2% (BldA) [Mass fraction] 99 % Dr. Verena Byrnes Work Phone: [facility] 08-25-2022 15:19-0500 Systolic blood pressure 120 mm[Hg] Dr. Verena Byrnes Work Phone: [facility] 06-22-2022 17:56-0400 Body height 160.[address] Verena Byrnes Work Phone: [facility] 06-22-2022 17:56-0400 Body mass index (BMI) [Percentile] Per age and sex 49.2 % Dr. Verena Byrnes Work Phone: [facility] 06-22-2022 17:56-0400 Body mass index (BMI) [Ratio] 20.9 kg/m2 Dr. Verena Byrnes Work Phone: [facility] 06-22-2022 17:56-0400 Body temperature 99 [degF] Dr. Verena Byrnes Work Phone: [facility] 06-22-2022 17:56-0400 Body weight 53.[address] Verena Byrnes Work Phone: [facility] 06-22-2022 17:56-0400 Diastolic blood pressure 68 mm[Hg] Dr. Verena Byrnes Work Phone: [facility] 06-22-2022 17:56-0400 Heart rate 93 /min Dr. Verena Byrnes Work Phone: [facility] 06-22-2022 17:56-0400 Respiratory rate 15 /min Dr. Verena Byrnes Work Phone: [facility] 06-22-2022 17:56-0400 SaO2% (BldA) [Mass fraction] 98 % Dr. Verena Byrnes Work Phone: [facility] 06-22-2022 17:56-0400 Systolic blood pressure 94 mm[Hg] Dr. Verena Byrnes Work Phone: [facility] Encounters Encounter Date Encounter Type Care Provider Facility Start: 05-24-2025 End: 05-24-[address] Farzana Fair MD -[facility] Work Phone: Start: 05-24-2025 End: 05-24-2025 ambulatory Verena Caferdinand Facility:[facility] Start: 05-15-2025 End: 05-15-[address] Verena Byrnes MD Work Phone: -[facility] Start: 05-15-2025 End: 05-15-[address] Farzana Fair MD -[facility] Start: 05-15-2025 End: 05-15-2025 ambulatory Verena Byrnes Facility:[facility] Start: 04-25-2025 End: 04-25-[address] Verena Byrnes MD Work Phone: -Laboratory Specimen Start: 04-25-2025 End: 04-25-2025 Patient encounter procedure Karen Aj CNM -Laboratory Specimen Work Phone: Start: 04-25-2025 End: 04-25-2025 Patient encounter procedure Karen Aj CNM -[facility] Work Phone: Start: 04-25-2025 End: 04-25-[address] Verena Byrnes MD Work Phone: -[facility] Start: 04-25-2025 End: 04-25-2025 ambulatory Verena Byrnes Facility:[facility] Start: 04-09-2025 End: 04-09-[address] Brenna Hill DO -[facility] Work Phone: Start: 04-09-2025 End: 04-09-[address] Verena Byrnes MD Work Phone: -[facility] Start: 06-14-2023 End: 06-14-2023 ambulatory [facility] Work Phone: Start: 06-14-2023 End: 06-14-2023 Patient encounter procedure [facility] Work Phone: Start: 01-26-2023 End: 01-26-2023 ambulatory MELVA MEYER [facility] Start: 01-26-2023 End: 01-26-2023 Subsequent hospital visit by physician Melva Meyer MD Work Phone: [facility] [place] [facility] Comment on above: Vomiting, unspecifie d vomiting type, unspecified whether nausea present; Generalized abdominal pain Start: 12-23-2022 End: 12-23-[address] Verena Byrnes Work Phone: [facility] Work Phone: Start: 12-23-2022 End: 12-23-[address] Verena Byrnes Work Phone: [facility] Start: 12-09-2022 End: 12-10-2022 ambulatory [facility] Start: 12-09-2022 End: 12-09-2022 ambulatory [facility] Start: 12-09-2022 End: 12-09-2022 Subsequent hospital visit by physician Ewa Valencia COUNTER SERVER-ELECTRIC MULE OPERATOR Work Phone: [facility] Comment on above: Vomiting, unspecifie d vomiting type, unspecified whether nausea present; Generalized abdominal pain Vomiting, unspecifie d vomiting type, unspecified whether nausea present Start: 12-02-2022 End: 12-02-2022 Emergency department patient visit Dr. Verena Byrnes Work Phone: [facility] Start: 10-07-2022 End: 10-07-[address] Verena Byrnes Work Phone: [facility] Work Phone: Start: 10-07-2022 End: 10-07-[address] [facility] Start: 09-22-2022 End: 09-22-[address] Verena Byrnes Work Phone: [facility] Start: 08-30-2022 End: 08-30-[address] Verena Byrnes Work Phone: [facility] Start: 08-25-2022 End: 08-25-[address] Verena Byrnes Work Phone: [facility] Start: 06-22-2022 End: 06-22-[address] Verena Byrnes Work Phone: [facility] Start: 06-17-2022 End: 06-17-[address] Verena Byrnes Work Phone: [facility] Work Phone: Start: 06-17-2022 End: 06-17-[address] [facility] Start: 03-01-2022 End: 03-01-2022 Emergency department patient visit CHRISTIAN K[facility] Procedures Date Procedure Procedure Detail Performing Clinician Start: 05-15-2025 Hepatitis C antibody measurement Dr. Verena Byrnes MD Work Phone: Comment on above: Reactive: Presumptiv e evidence of antibodies to HCV. Follow CDC recommendations for supplemental testing.Non-Reactive: Antibodies to HCV were not detected; does not exclude the possibility of exposure to HCVReactive Results are presumptive evidence of antibodies to HCV. Follow CDC recommendations for supplemental testing.Order confirmation testing: HCV Quant by PCR testing - HCVPCR lc#[id number] Non Reactive: < 0.8 Equivocal: >/= 0.8 to < 1.0 Reactive: >/= 1.0The CDC requires that a reactive/equivocal HCV antibody result be sent out for confirmation. HCV Quant by PCR testing. Start: 05-15-[address] Verena Byrnes MD Work Phone: Start: 05-15-[address] Verena Byrnes MD Work Phone: Comment on above: Antibody Result: Int erpretationNon-Reactive: Non- ImmuneReactive: ImmuneThe following results were obtained with the [employer] Rubella IgG assay. Results from assays of other manufacturers cannot be used interchangeably. Start: 05-15-2025 Serologic test for syphilis Dr. Verena Byrnes MD Work Phone: Start: 05-15-2025 Total iron binding c apacity measurement Dr. Verena Byrnes MD Work Phone: Start: 04-25-2025 Methadone measurement, urine Dr. Verena Byrnes MD Work Phone: Start: 04-25-[address] Qi Byrnes MD Work Phone: Start: 06-14-2023 Bacterial nucleic acid assay Start: 06-14-2023 Chlamydia trachomatis (PCR) Start: 01-26-2023 Basic metabolic 2000 panel - Serum or Plasma Melva Meyer MD Work Phone: Start: 01-26-2023 C-reactive protein Cayden jania Meyer MD Work Phone: Start: 01-26-2023 COMPLETE BLOOD COUNT WITH DIFFERENTIAL Melva Meyer MD Work Phone: Start: 01-26-2023 Ferritin [Mass/volum e] in Serum or Plasma Melva Meyer MD Work Phone: Start: 01-26-2023 Hepatic function 200 0 panel - Serum or Plasma Melva Meyer MD Work Phone: Start: 01-26-2023 IMMUNOGLOBULIN A Deacon Meyer MD Work Phone: Start: 01-26-2023 Iron [Mass/volume] i n Serum or Plasma Melva Meyer MD Work Phone: Start: 01-26-2023 Prealbumin [Mass/vol ume] in Serum or Plasma Melva Meyer MD Work Phone: Start: 01-26-2023 TSH WITH REFLEX TO T4, FREE Melva Meyer MD Work Phone: Start: 01-26-2023 VITAMIN D 25 HYDROXY (VITAMIN D DEFICIENCY) Melva Meyer MD Work Phone: Start: 01-26-2023 Urine test visual color cmprsn meths Liban Winkler MD Work Phone: Start: 12-23-2022 Diagnostic radiograp hy of upper gastrointestinal tract with serial films Dr. Verena Byrnes Work Phone: Start: 12-09-2022 Radiologic exam abdo men 1 view Ewa Valencia COUNTER SERVER-ELECTRIC MULE OPERATOR Work Phone: Start: 12-09-2022 US Unspecified body region No charge Ewa Valencia COUNTER SERVER-ELECTRIC MULE OPERATOR Work Phone: Start: 08-25-[address] Aleida Byrnes Work Phone: Start: 08-25-2022 X-ray of both feet Dr. Verena Byrnes Work Phone: Plan of Treatment Date Care Activity Detail Author Start: 04-22-2023 FLU (Season Ended) FLU (Season Ended ) [facility] Start: 01-26-2023 End: 01-26-2023 ENDOSCOPY UPPER (FLEXIBLE) ENDOSCOPY UPPER (FLEXIBLE) Vomiting, unspecified vomiting type, unspecified whether nausea present Generalized abdominal pain 01/26/2023 9:40 AM EDT [facility]: [facility] Start: 04-22-2022 FLU (#1) FLU (#1) [facility] Start: 2021 MenACWY (1 - 2-dose series) MenACWY (1 - 2-dose series) [facility] Start: 2021 MenB (1 of 2 - MenB 2-Dose Series Bexsero) MenB (1 of 2 - MenB 2-Dose Series Bexsero) [facility] Start: 2020 Hearing Screening Hearing Screening [facility] Start: 2020 Vision Screening Vision Screening [facility] Start: 2016 HPV (1 - 2-dose series) HPV (1 - 2-d ose series) [facility] Start: 2012 Tetanus Diphtheria a nd Pertussis Vaccines (1 - Tdap) Tetanus Diphtheria and Pertussis Vaccines (1 - Tdap) [facility] Start: 2006 Hepatitis A (1 of 2 - 2-dose series) Hepatitis A (1 of 2 - 2-dose series) [facility] Start: 2006 MMR (1 of 2 - Standa rd series) MMR (1 of 2 - Standard series) [facility] Start: 2006 Varicella (1 of 2 - 2-dose childhood series) Varicella (1 of 2 - 2-dose childhood series) [facility] Start: 2005 COVID-19 (#1) COVID-19 (#1) [facility] Start: 2005 Polio (1 of 3 - 4-do se series) Polio (1 of 3 - 4-dose series) [facility] Start: 2005 Hepatitis B (1 of 3 - 3-dose series) Hepatitis B (1 of 3 - 3-dose series) [facility] CBC W Auto Different ial panel - Blood [facility] Chlamydia deoxyribonucleic acid detection [facility] Drugs identified in Urine by Screen method [facility] End: 01-26-2023 Endomysial IgA Ab Endomysial IgA Ab Lab Routine For lab collect this frequency defaults to the next routine lab draw time. Routine times: 0600; 1100; 1400; 1900; 2200 for 1 Occurrences starting 01/26/2023 until 01/26/[address] [facility] Comment on above: For lab collect this frequency defaults to the next routine lab draw time. Routine times: 0600; 1100; 1400; 1900; 2200 for 1 Occurrences starting 01/26/2023 until 01/26/2023 Endomysial IgA Ab Endomysial IgA Ab Lab Routine 01/26/2023 9:45 AM EDT [facility] ENDOSCOPY UPPER (FLEXIBLE) ENDOSCOPY UPPER (FLEXIBLE) Vomiting, unspecified vomiting type, unspecified whether nausea present Generalized abdominal pain [facility] Hepatitis C antibody measurement [facility] Iron and Iron bindin g capacity panel - Serum or Plasma [facility] Patient Education ED Gastritis (Adult) [facility] Work Phone: Patient referral [facility] Work Phone: Procedure [facility] Rubella IgG measurement [facility] Serologic test for syphilis [facility] Surgical Pathology L ab [facility] Work Phone: Comment on above: Release Upon Orderin g for 1 Occurrences starting 01/26/2023 Thiamine measurement [facility] End: 01-26-2023 Transglutaminase IgA Transglutaminase IgA Lab Routine For lab collect this frequency defaults to the next routine lab draw time. Routine times: 0600; 1100; 1400; 1900; 2200 for 1 Occurrences starting 01/26/2023 until 01/26/[address] [facility] Comment on above: For lab collect this frequency defaults to the next routine lab draw time. Routine times: 0600; 1100; 1400; 1900; 2200 for 1 Occurrences starting 01/26/2023 until 01/26/2023 Transglutaminase IgA Transglutam inase IgA Lab Routine 01/26/2023 9:45 AM EDT [facility] Ultrasonography in f irst trimester [facility] Vitamin B12 measurement [facility] [place] Date Payer Category Payer Unknown [id number] 2025 Private Health Insurance [id number] 2025 Private Health Insurance [id number] 2025 Self-pay [id number] 2022 Unknown [id number] 2002 Unknown [id number] 1976 Unknown [id number] 79 1976 Unknown [id number] 79 1972 Unknown [id number] 51 1972 Unknown [id number] 79 1972 Unknown [id number] 79 Unknown [id number] Unknown [id number] Unknown [facility] [id number] Unknown [facility] [id number] Unknown [facility] [id number] Unknown [id number] Unknown [id number] Unknown [id number] 62 Unknown [id number] 62 Unknown [id number] 62 Unknown [id number] 62 Unknown [id number] 62 Social History Date Type Detail Facility Start: 06-22-2022 End: 12-02-2022 Tobacco smoking status ILIS Unknown if ever smoked [facility] Start: 2005 Sex Assigned At Female [facility] Start: 12-09-2022 Tobacco smoking status NHIS Never smoked tobacco [facility] History of tobacco use Passive smoker [facility] Start: 12-09-2022 Tobacco use and exposure Smokeless tobacco non-user [facility] Start: 12-09-2022 End: 01-26-2023 History of Social function [facility] Start: 12-09-2022 End: 01-26-2023 Tobacco use panel [facility] Start: 2005 Sex Assigned At Not on file [facility] Start: 04-09-2025 End: 04-09-2025 Tobacco smoking status NHIS Smokes tobacco daily (finding) [facility] NEGATED: Highlighted row [facility] Clinical Notes 12-02-2022 to 04-25-2025 Note Date & Type Note Facility 04-25-2025 Evaluation note Diagnosis Onset Date Resolution Anxiety and depression acute Se ptember 2024 8:01am Current every day vaping acute April 25, 2025 8:01am FH: breast cancer acute Septemb er 2024 8:01am Gastroenteritis acute April 25, 2025 8:01am History of stomach ulcers acute April 25, 2025 8:01am Marijuana use acute April 252024 8:01am acute April 25, 2025 8:01am Supervision of high-risk acute April 25 8:01am Underweight (BMI < 18.5) acute April 25, 2025 8:01am [facility] Work Phone: 1([phone]) 739-695209-04-2025 Evaluation note* Diagnosis Onset Date Resolution Status Admit Date Anxiety and depression acute Se ptember 2024 8:01am Current every day vaping acute April 25, 2025 8:01am FH: breast cancer acute 2024 8:01am Gastroenteritis acute April 25, 2025 8:01am History of stomach ulcers acute April 25, 2025 8:01am Marijuana use acute April 252024 8:01am acute April 25, 2025 8:01am Supervision of high-risk acute April 25 8:01am Underweight (BMI < 18.5) acute April 25, 2025 8:01am Anxiety and depression acute Oc 2024 11:30am Current every day vaping acute May 24, 2025 11:30am FH: breast cancer acute May 24, 2025 11:30am Gastroenteritis acute May 242024 11:30am History of stomach ulcers acute May 24, 2025 11:30am Marijuana use acute May 11:30am acute May 24, 11:30am Supervision of high-risk acute May 24 11:30am Underweight (BMI < 18.5) acute May 24, 2025 11:30am [facility] Work Phone: 1(399) 297-231109-04-2025 [facility] [address] [place] [address], [address] [place] [address] OFFICE VISIT Date of Service: 04/25/25 MR#: [id number] Acct: [id number] Name: PRESLEY FRANCE Rep #: [id number] : 2005 Provider: PHUONG Aj Age/Sex: 20/F [place] [facility] [facility] [place]: Signed Intake Vital Signs 12/02/22 13:10 04/09/25 09:41 04/25/25 08:11 Height 5 ft 5 in 5 ft 3.5 in 5 ft 3.5 in Weight: 104 lb 5 oz 111 lb 4 oz BMI 18.1 19.3 BP 110/60 113/73 Blood Pressure Location Lt brachial Position Sitting Intake Visit Reasons: *NEW* NOB LMP 02/22, ANNI 11/29 Chief Complaint: New OB Boiler Attendant Required: No Is patient in pain?: No Allergies No Known Allergies Allergy (Verified 04/25/25 08:11) Medications ?Medication ?Instructions ?Recorded ?Confirmed ?Type fluoxetine 20 mg capsule 20 mg PO QDAY 04/09/2504/25 History multivit-min no.71-iron fum 28 cap PO 04/09/25 5 History mg-folate no.1 1 mg-dha 300 mg capsule (PNV-Mcintosh) promethazine 25 mg tablet 25 mg PO TID PRN nausea and 04/09/25 04/25/25 Rx vomiting, and anxiety #60 tabs Last Menstrual Period: 02/22/25 : Yes PFSH PFSH Medical History Seasonal allergies Paronychia of finger of left hand Contact with and (suspected) exposure to other viral communicable diseases Gastroenteritis Contusion of left foot Left ankle sprain Depression Anxiety GERD (gastroesophageal reflux disease) Surgical History History of esophagogastroduodenoscopy (EGD) Family History Father High cholesterol Mother High cholesterol Maternal Grandmother Breast cancer, Onset Age: 67 Grandfather Cancer, Onset Age: 66 Paternal Maternal Grandfather Myocardial infarction, Onset Age: 50 Social History adopted: No household members: spouse housing: other details: trailer current occupational status: employed current occupation: [employer] pets and animals: Yes (Avoid litterbox) pets and animals: cat(s) and dog(s) history of recent travel: No sexually active: Yes Smoking Status: Current every day smoker tobacco type: e-cigarettes quit status: considering quitting alcohol intake: never substance use type: marijuana well-balanced diet: about half the time caffeine: Yes Type: coffee Number of servings: 2 eating out: 1-3 times/week during the past year weight has: remained stable what type of physical activity do you participate in: none giles/voodoo: None seatbelt use: sometimes do you feel safe at home: Yes additional social history: [employer] History 1 Elective abortions Hx Para 0 Spontaneous abortions Hx # Term Pregnancies Ectopic pregnancies Hx # Pregnancies Multiple births # of living children HPI *NEW* NOB LMP 02/22, ANNI 11/29 Details: PRESLEY FRANCE is a 20 year old who presents for New OB visit. OB Visit ANNI Calculator Estimated Delivery Date Method Current WG Current Estimate 11/29/25 LMP (Uncertain) 8w 6d Other Estimates 11/29/25 Ultrasound #1 8w 6d Comments: HIV: Urine Culture: Sequential Screen: NIPT Screen: Estimated Due Date: 11/29/25 Expected Delivery Route/Plan Labor Preferences- CB/BF classes: [] labor support person: [] labor intervention preferences: [] pain management options preferred: [] cut cord/dad catch: [] : [] PP control planned: [] discussed possible routes of delivery and associated risks: [] special requests: [] Specific Issue/Plans Covid status: [] Flu vaccine: [] Tdap vaccine: [] Rhogam: [] LARC form signed: [] Problem list reviewed and updated with the most current plan of care details and appropriate ordersplaced. Relevant counseling for the gestational age provided. Continue routine care and follow up unless otherwise noted in visit notes/problem list details Initial Weight: 111 lb Date -?-?-?-?-?-?-?-?-?-?-?-?- EGA Weight BP Urine Prot -?-?-?-?-?-?-?-?-?-?-?-?- Glucose FHR FuHt Pres Dilation -?-?-?-?-?-?-?-?-?-?-?-?- Effaced St Visit Note 04/25/25 -?-?-?-?-?-?-?-?-?-?-?-?- 8w 6d 111 lb 4 oz (+4 oz) 113/73 -?-?-?-?-?-?-?-?-?-?-?-?- 176 -?-?-?--?-?-?-?-?-?-?-?-?- KW- CRL 2.22 con s with dates. accepts NIPT Menstrual History Last Menstrual Period: 02/22/25 Reported LMP: definite Normal amount/duration: No (shorter than normal) Frequency in days: 28-30 On hormonal BC at conception: No hCG+: 03/25/25 Antepartum Record Genetic Screening: Congenital Heart Defect: Other, Neural Tube Defect: Partner (balance center in brain not completely formed), Hemoglobinopathy Or Carrier: Other, Cystic Fibrosis: Other, Chromosome Abnormality: Other, Robert-Sachs: Other, Hemophilia: Other, Intellectual Disability/Autism: Other, Recurrent Loss/Stillbirth: Other, Other Structural Defect: Other, Other Genetic Disease:Other and Maternal Metabolic Disorder: Other Infection History: Live with someone with TB or Exposed to TB: No, Patient or Partner has history of Genital Herpes: No, Rash or Viral illness since last mentrual period: Yes (GI flu), Prior GBS-Infected child: No, History of STD: No, HIV Infection: No, History of Hepatitis: No, Recent travel outside of [place]: No, Concern for hepatitis exposure: No, Varicella immune: Yes (immune-vaccinated) and Covid Vaccinated: No Medical History Medical History: Positive: Psychiatric (anxiety), Depression/ depression (fluoxetine), Seasonal allergies (mild), Operations/hospitalizations (EGD), Relevant family history (FH Breast Cancer Maternal Grandmother, Paternal Grandfather skin cancer, Maternal Grandfather MT, Parents with highcholesterol) and Other (GI issues-ulcers, reflux) and Negative: Diabetes, Hypertension, Heart disease, Auto-immune disorder, Kidney disease/UTI, Neurologic/epilepsy, Hepatitis/liver disease, Varicosities/phlebitis, Thyroid dysfunction, Trauma/domestic violence, History of blood transfusions, D (Rh)Sensitized, Pulmonary (e.g.,TB,Asthma) (smoker), Drug/latex allergies/reactions, Breast, Stocking Inspector surgery, Anesthetic complications, History of abnormal pap, Uterine anomaly/rafiq, Infertility and Anti-retroviral treatment ACOG First Trimester First Trimester: Desire for , Alcohol, Tobacco Cessation, Illicit/Recreational Drug/Substance Use, Intimate Partner Violence, Barriers to care, Unstable Housing, Communication Barriers, Environmental/Work Hazards, Anticipated Course of Care, Nurtrition and weight gain, Toxoplasmosis Precations, Use of Any medications, Sexual activity, Exercise, Dental Care, Sauna/Hot tub use, Seat Belt use, Childbirth classes/Hospital facilities, , Travel, Indications for Ultrasound and Screening for Aneuploidy Second Trimester Second Trimester: Signs and Symptoms of Labor, Selecting a care provider, Reproductive Life Planning & Contreception, Care Planning, Depression/Anxiety and Intimate Partner Violence; Discussed Tobacco Cessation Third Trimester Third Trimester: Pain Management Plans, Labor support person(s), Immediate Larc, Signs and Symptoms of Preeclampsia, Feeding Yes , [place] Education and Family Medical Leave or Disability Forms ROS Const Reports system reviewed and no additional complaints, except as documented, Denies fatigue, Denies headache(s) and Denies lethargy ENT Denies headache(s) Card Reports system reviewed and no additional complaints, except as documented Resp Reports system reviewed and no additional complaints, except as documented GI Reports system reviewed and no additional complaints, except as documented, Denies abdominal pain, Denies constipation, Denies cramping, Denies diarrhea and Denies dyspepsia Reports system reviewed and no additional complaints, except as documented, Denies abnormal vaginalbleeding, Denies difficulty voiding, Denies dyspareunia and Denies dysuria Musc Reports system reviewed and no additional complaints, except as documented Skin/Breast Reports system reviewed and no additional complaints, except as documented Neuro Yes system reviewed and no additional complaints, except as documented and No headache(s) Psych Reports system reviewed and no additional complaints, except as documented, Denies anhedonia and Denies anxiety Endo Reports system reviewed and no additional complaints, except as documented and Denies fatigue Exam Const General: cooperative, healthy appearing and comfortable Neck Neck: normal visual inspection and full ROM Chest Chest palpation & inspection: normal inspection of the chest Breast inspection: normal inspection of the breasts and normal inspection of the axillae Breast palpation: normal palpation of the breasts and normal palpation of the axillae Resp Effort & Inspection: normal respiratory effort and able to speak in complete sentences GI Inspection: normal to inspection Palpation: soft External Female Exam: normal external appearance and normal appearance of the urethra Urethra: normal appearance of the urethra Skin General: no rashes or lesions noted Neuro General: patient alert, patient awake and patient oriented x3 Extrem General: normal to inspection and full ROM Psych Appearance: grossly normal and well kempt Mental Status: mental status grossly normal Mood: congruent mood Affect: normal affect Speech and Movement: speech and movement normal Thought Process: normal Thought Content: normal Coding Level of Care Code OB Routine Diagnoses Underweight (BMI < 18.5) R63.6; Z68.1 Supervision of high-risk O09.90 8 weeks gestation of Z3A.08 Weeks of gestation: 8 weeks FH: breast cancer Z80.3 History of stomach ulcers Z87.11 Current every day vaping Z72.89 Marijuana use F12.90 Anxiety and depression F41.9; F32.A Gastroenteritis K52.9 Assessment and Plan Assessment and Plan (1) Underweight (BMI < 18.5): Status: Acute Comment: thiamine, B12, iron & iron binding (2) Supervision of high-risk : Status: Acute Comment: , ANNI 11/29/25, Sebastian (3) : Status: Acute Qualifiers: Weeks of gestation: 8 weeks Qualified Code(s): Z3A.08 - 8 weeks gestation of Comment: elects NIPT with gender, declines carrier (4) FH: breast cancer: Status: Acute Comment: Maternal Grandmother (5) History of stomach ulcers: Status: Acute (6) Current every day vaping: Status: Acute Comment: cutting down, considering quitting, discussed risks & encouraged cessation (7) Marijuana use: Status: Acute Comment: attempting to decrease use, discussed risks & encouraged cessation (8) Anxiety and depression: Status: Acute Comment: fluoxetine (9) Gastroenteritis: Status: Acute Orders: Orders CBC W/Diff, Automated 04/09/25 O09.90 - Supervision of high risk , unspecified, unspecified trimester Type & Screen 04/09/25 O09.90 - Supervision of high risk , unspecified, unspecified trimester Rubella IgG 04/09/25 O09.90 - Supervision of high risk , unspecified, unspecified trimester Hepatitis C Antibody 04/09/25 O09.90 - Supervision of high risk , unspecified, unspecifiedtrimester Hepatitis B Surface Antigen 04/09/25 O09.90 - Supervision of high risk , unspecified, unspecified trimester Culture, Urine 04/09/25 O09.90 - Supervision of high risk , unspecified, unspecified trimester Syphilis Antibodies 04/09/25 O09.90 - Supervision of high risk , unspecified, unspecified trimester Chlamydia/GC ROOPA aptima 04/09/25 O09.90 - Supervision of high risk , unspecified, unspecified trimester HIV 04/09/25 O09.90 - Supervision of high risk , unspecified, unspecified trimester Iron+Iron Binding Capacity 04/09/25 O09.90 - Supervision of high risk , unspecified, unspecified trimester, R63.6 - Underweight, Z68.1 - Body mass index [BMI] 19.9 or less, adult Vitamin B1, Thiamine 04/09/25 O09.90 - Supervision of high risk , unspecified, unspecifiedtrimester, R63.6 - Underweight, Z68.1 - Body mass index [BMI] 19.9 or less, adult Vitamin B12 04/09/25 O09.90 - Supervision of high risk , unspecified, unspecified trimester, R63.6 - Underweight, Z68.1 - Body mass index [BMI] 19.9 or less, adult Urine Drug Screen 04/09/25 F12.90 - Cannabis use, unspecified, uncomplicated, O09.90 - Supervision of high risk , unspecified, unspecified trimester CEFERINO 04/09/25 O09.90 - Supervision of high risk , unspecified, unspecified trimester Comments Comments: Patient oriented to practice and discussed care expectations and screenings. ACOG book offered to patient. Discussed routine and specially indicated labs if needed- patient consents to testing. See problem list details for plan information. Optional screening including maternal carrier screenings, neural tube defect screening, genetic screening options including quad screen, nuchal translucency, sequential screening, and NIPT screening offered to patient and patient chose: NIPT 04/25/25 0834 akilah BACA> Date _ Karen Aj CNM Cosigner Signature: Date (if applicable) CC: ~ [facility]08-22-2025 Progress note Author Karen Jean Marie [facility] Note Date/Time April 12, 2025 3: 34pm [facility] [place] [address] OFFICE VISIT Date of Service: 04/25/25 MR#: [id number] Acct: [id number] Patient: PRESLEY FRANCE Rep # : [id number] : 2005 Provider: PHUONG Aj Age/Sex: 19/F [place] [facility]: Signed Intake Vital Signs 12/02/22 13:10 04/09/25 09:41 Height 5 ft 5 in 5 ft 3.5 in Weight: 104 lb 5 oz BMI 18.1 BP 110/60 Blood Pressure Location Lt brachial Position Sitting Intake Visit Reasons: *NEW* NOB LMP 7, ANNI 11/29 Chief Complaint: new . Extreme nausea daily. Boiler Attendant Required: No Accompanied by: Is patient in pain?: No Allergies No Known Allergies Allergy (Verified 04/09/25 09:43) Medications ?Medication ?Instructions ?Recorded ?Confirmed ?Type fluoxetine 20 mg capsule 20 mg PO QDAY 04/09/2504/09 History multivit-min no.71-iron fum 28 cap PO 04/09/25 5 History mg-folate no.1 1 mg-dha 300 mg capsule (PNV-Mcintosh) promethazine 25 mg tablet 25 mg PO TID PRN nausea and 04/09/25 Rx vomiting, and anxiety #60 tabs Is last menstrual period known: Yes Last menstrual period: 02/22/25 Post menopausal: No Patient : Yes Nurse's Note: Pt here for secondary amenorrhea. Vitals WNL. PNOB questions completed. Problem list, allergies, and medications updated. First trimester ACOG education completed. Assessment and Plan Assessment and Plan Orders: Orders CBC W/Diff, Automated 04/09/25 O09.90 - Supervision of high risk , unspecified, unspecified trimester Type & Screen 04/09/25 O09.90 - Supervision of high risk , unspecified, unspecified trimester Rubella IgG 04/09/25 O09.90 - Supervision of high risk , unspecified, unspecified trimester Hepatitis C Antibody 04/09/25 O09.90 - Supervision of high risk , unspecified, unspecified trimester Hepatitis B Surface Antigen 04/09/25 O09. - Supervision of high risk , unspecified, unspecified trimester Culture, Urine 04/09/25 O. - Supervision of high risk , unspecified, unspecified trimester Syphilis Antibodies 04/09/25 O09. - Supervision of high risk , unspecified, unspecified trimester Chlamydia/GC ROOPA aptima 04/09/25 O09. - Supervision of high risk , unspecified, unspecified trimester HIV 04/09/25 O09.90 - Supervision of high risk , unspecified, unspecified trimester Iron+Iron Binding Capacity 04/09/25 O - Supervision of high risk , unspecified, unspecified trimester, R63.6 - Underweight, Z68.1 - Bodymass index [BMI] 19.9 or less, adult Vitamin B1, Thiamine 04/09/25 O09.90 - Supervision of high risk , unspecified, unspecified trimester, R63.6 - Underweight, Z68.1 - Body mass index [BMI] 19.9 or less, adult Vitamin B12 04/09/25 O09.90 - Supervision of high risk , unspecified, unspecified trimester, R63.6 - Underweight, Z68.1 - Body mass index [BMI] 19.9 or less, adult Urine Drug Screen 04/09/25 F12.90 - Cannabis use, unspecified, uncomplicated, O09 - Supervision of high risk , unspecified, unspecified trimester CEFERINO 04/09/25 O09.90 - Supervision of high risk , unspecified, unspecified trimester 04/12/25 1534 <Electronically signed by Karen isbell CNM> Date _ Karen Aj CNM Cosigner Signature: Date (if applicable) CC: ~ [facility] Work Phone: 1(371) 357-124308-22-2025 [facility] [address] [place] [address] OFFICE VISIT Date of Service: 04/25/25 MR#: [id number] Acct: [id number] Patient: PRESLEY FRANCE Rep # : [id number] : 2005 Provider: PHUONG Aj Age/Sex: 19/F [place] [facility] [place]: Signed Intake Vital Signs 12/02/22 13:10 04/09/25 09:41 Height 5 ft 5 in 5 ft 3.5 in Weight: 104 lb 5 oz BMI 18.1 BP 110/60 Blood Pressure Location Lt brachial Position Sitting Intake Visit Reasons: *NEW* NOB LMP 02/22, ANNI 11/29 Chief Complaint: new . Extreme nausea daily. Boiler Attendant Required: No Accompanied by: Is patient in pain?: No Allergies No Known Allergies Allergy (Verified 04/09/25 09:43) Medications ?Medication ?Instructions ?Recorded ?Confirmed ?Type fluoxetine 20 mg capsule 20 mg PO QDAY 04/09/2504/09 History multivit-min no.71-iron fum 28 cap PO 04/09/25 5 History mg-folate no.1 1 mg-dha 300 mg capsule (PNV-Mcintosh) promethazine 25 mg tablet 25 mg PO TID PRN nausea and 04/09/25 Rx vomiting, and anxiety #60 tabs Is last menstrual period known: Yes Last menstrual period: 02/22/25 Post menopausal: No Patient : Yes Nurse's Note: Pt here for secondary amenorrhea. Vitals WNL. PNOB questions completed. Problem list, allergies, and medications updated. First trimester ACOG education completed. Assessment and Plan Assessment and Plan Orders: Orders CBC W/Diff, Automated 04/09/25 O09.90 - Supervision of high risk , unspecified, unspecified trimester Type & Screen 04/09/25 O09.90 - Supervision of high risk , unspecified, unspecified trimester Rubella IgG 04/09/25 O09.90 - Supervision of high risk , unspecified, unspecified trimester Hepatitis C Antibody 04/09/25 O09.90 - Supervision of high risk , unspecified, unspecifiedtrimester Hepatitis B Surface Antigen 04/09/25 O09.90 - Supervision of high risk , unspecified, unspecified trimester Culture, Urine 04/09/25 O09.90 - Supervision of high risk , unspecified, unspecified trimester Syphilis Antibodies 04/09/25 O09.90 - Supervision of high risk , unspecified, unspecified trimester Chlamydia/GC ROOPA aptima 04/09/25 O09.90 - Supervision of high risk , unspecified, unspecified trimester HIV 04/09/25 O09.90 - Supervision of high risk , unspecified, unspecified trimester Iron+Iron Binding Capacity 04/09/25 O09.90 - Supervision of high risk , unspecified, unspecified trimester, R63.6 - Underweight, Z68.1 - Bodymass index [BMI] 19.9 or less, adult Vitamin B1, Thiamine 04/09/25 O09.90 - Supervision of high risk , unspecified, unspecifiedtrimester, R63.6 - Underweight, Z68.1 - Body mass index [BMI] 19.9 or less, adult Vitamin B12 04/09/25 O09.90 - Supervision of high risk , unspecified, unspecified trimester, R63.6 - Underweight, Z68.1 - Body mass index [BMI] 19.9 or less, adult Urine Drug Screen 04/09/25 F12.90 - Cannabis use, unspecified, uncomplicated, O09.90 - Supervision of high risk , unspecified, unspecified trimester CEFERINO 04/09/25 O09.90 - Supervision of high risk , unspecified, unspecified trimester 04/12/25 1534 s PHUONG> Date _ Karen Aj CNM Cosigner Signature: Date (if applicable) CC: ~ [facility]08-19-2025 Chief complaint+Reason for visit Narrative* Chief Complaint Admit Date PNOB Vitals & Education April 09 8:00am *NEW* NOB LMP 7/, ANNI 11/29 8:01am Reason for Visit Admit Date Anxiety and depression April 25 8:01am Current every day vaping April 25, 2025 8:01am FH: breast cancer April 25, 2025 8:01am Gastroenteritis April 25, 2025 8:01am History of stomach ulcers April 25, 2025 8:01am Marijuana use April 25, 2025 8:01am April 25, 2025 8:01am Supervision of high-risk [facility] 2024 8:01am Underweight (BMI < 18.5) April 25, 2025 8:01am [facility] Work Phone: 1(776) 627-571408-19-2025 Chief complaint+Reason for visit Narrative * Chief Complaint Admit Date PNOB Vitals & Education April 09 8:00am *NEW* NOB LMP 7, ANNI 11/29 8:01am 13 WK OB, discuss iron May 24, 2025 11:30am Reason for Visit Admit Date Anxiety and depression April 25 8:01am Current every day vaping April 25, 2025 8:01am FH: breast cancer April 25, 2025 8:01am Gastroenteritis April 25, 2025 8:01am History of stomach ulcers April 25, 2025 8:01am Marijuana use April 25, 2025 8:01am April 25, 2025 8:01am Supervision of high-risk [facility] 2024 8:01am Underweight (BMI < 18.5) April 25, 2025 8:01am Anxiety and depression May 24, 2025 11:30am Current every day vaping May 24 11:30am FH: breast cancer May 24, 2025 11 :30am Gastroenteritis May 24, 2025 11 :30am History of stomach ulcers May 24, 025 11:30am Marijuana use May 24, 2025 11 :30am May 24, 2025 11 :30am Supervision of high-risk Octob 2024 11:30am Underweight (BMI < 18.5) May 24 11:30am [facility] Work Phone: [phone]) [phone] Nurse Note* Nursing - Nannette Benitez, RN - 01/26/2023 10:36 AM EDT Placed PH phobe in OR under endoscope per in Left nares @ 40 cm secured with Tegaderm. Study started at 1015. Educated mom on machine and given ph diary/ paper. Mom signed agreement form will mail back device and paper tomorrow. Mom verbalized understanding. Lot # [id number] Exp. 09/27/2023 Device SN: [id number] [facility]06-07-2023 Miscellaneous Notes* Nursing - Nannette Benitez, RN - 01/26/2023 10:36 AM EDT Placed PH phobe in OR under endoscope per in Left nares @ 40 cm secured with Tegaderm. Study started at 1015. Educated mom on machine and given ph diary/ paper. Mom signed agreement form will mail back device and paper tomorrow. Mom verbalized understanding. Lot # [id number] Exp. 09/27/2023 Device SN: [id number] * Op Note - Melva Meyer MD - 01/26/2023 10:18 AM EDT Patient NamePRESLEY FRANCE Date of Birth2005 Record [id number] Date/Time of Procedure01/26/2023 , 9:21:00 AM Referring Physician Toro FRYE PROCEDURE PERFORMED EGD INDICATIONS FOR EXAMINATION Vomiting, unspecified vomiting type, unspecified whether nausea present [R11.10] Generalized abdominal pain [R10.84] R11.10 Vomiting, unspecified R10.84 Generalized abdominal pain INSTRUMENTS GIF [id number] PROCEDURE TECHNIQUE A physical exam was performed. Informed consent was obtained from the patient's parents/guardian after explaining all the risks (perforation, bleeding, infection and adverse effects to the medicine),benefits and alternatives to the procedure which the patient's parents appeared to understand and so stated. The patient was connected to the monitoring devices and placed in the supine position. Continuous oxygen was provided and IV medicine administered through a indwelling cannula. After adequate general anesthesia was achieved, the patient was intubated and the scope advanced under direct visualization to the third part of duodenum The esophagus, stomach and duodenum were identified by visual landmarks. The scope was subsequentlyremoved slowly while carefully examining the color, texture, anatomy, and integrity of the mucosa on the way out. The patient was subsequently transferred to the recovery area in satisfactory condition. ESTIMATED BLOOD LOSS2 ML FINDINGS Normal in the mid esophagus and distal esophagus. Biopsy obtained, results pending. Complete hemostasis achieved. Sessile and small polyp (nonbleeding) in the ge junction. Biopsy obtained, results pending. Complete hemostasis achieved. Normal in the antrum and fundus. Biopsy obtained, results pending. Complete hemostasis achieved. Normal in the third part of duodenum. Biopsy obtained, results pending. Complete hemostasis achieved. ENDOSCOPIC DIAGNOSIS Normal Esophagus Small sessile polyp noted at GE Junction Normal Stomach Normal Duodenum pH probe placed in left nares at 40cm; confirmed placement at GE junction [facility] Endoscope RECOMMENDATIONS Pending biopsy. * Plan of Care - Nikia Burnett RN - 01/26/2023 10:07 AM EDT Problem: Falls, Risk of Goal: Absence of falls Outcome: Ongoing Goal: Absence of physical injury Outcome: Ongoing Problem: Infection Risk, Surgical Site Goal: Absence of infection signs and symptoms Outcome: Ongoing Problem: Adverse Surgical Event, Risk of Goal: Absence of injury Outcome: Ongoing documented in this [facility] NoteHISTORY AND PHYSICAL DATE OF SERVICE: 01/26/2023 PRIMARY CARE PROVIDER: Verena Byrnes MD ATTENDING PROVIDER: Melva Meyer MD CHIEF COMPLAINT: CHIVO REASON FOR HOSPITALIZATION: Surgery HPI This is a 17 year old female with N/V, weight loss, abdominal pains, esophagitis and polyp in stomach on previous scope. We were going to do labs today but she was so upset and crying and mom reports anxiety that we decided to wait for them to be done with scope. We will repeat scope, has been 2 years and we will set up PH probe to be done at the same time. Review of Systems Constitutional: Positive for weight loss. Negative for recurrent fevers, weight gain and malaise/fatigue. HENT: Positive for sour taste. Negative for mouth sores and trouble swallowing. Eyes: Negative. Respiratory: Negative for coughing and wheezing. Cardiovascular: Negative for heart murmur and chest pain. Endocrine: Negative for poor growth. Gastrointestinal: Positive for heartburn and abdominal pain. Negative for constipation, diarrhea, vomiting, blood in stool, trouble swallowing and nausea. Genitourinary: Negative for dysuria and hematuria. Neurological: Negative for headaches, seizures, dizziness and fainting. Musculoskeletal: Negative for joint pain. Skin: Positive for acne. Negative for rash and easy bruising. Allergy/Immune: Negative for frequent infections. Hematology: Negative for no easy bleeding and no easy bruising. PAST MEDICAL/SURGICAL HISTORY: Past Medical History: Diagnosis Date Gastroesophageal reflux disease without esophagitis Past Surgical History: Procedure Laterality Date UPPER GASTROINTESTINAL ENDOSCOPY N/A 02/18/2021 ENDOSCOPY UPPER (FLEXIBLE) with biopsies performed by Cuco Gan DO at [facility] [place] OR DRUG/FOOD ALLERGIES: No Known Allergies IMMUNIZATIONS: Not evaluated at this time MEDICATIONS: Medications Prior to Admission Medication Sig Dispense Refill Last Dose esomeprazole (NEXIUM) 40 MG capsule Take 1 Capsule (40 mg) by mouth daily 30 Capsule 3 Past Week FLUoxetine (PROZAC) 20 MG capsule (Patient not taking: Reported on 01/26/2023) Not Taking hyoscyamine (LEVSIN) 0.125 MG TABS tablet Take 1 Tablet (0.125 mg) by mouth every 6 hours as needed for Other (abdominal pain, nausea) (Patient not taking: Reported on 01/26/2023) 90 Tablet 2 Not Taking escitalopram (LEXAPRO) 10 MG tablet Take by mouth daily (Patient not taking: Reported on 01/26/2023) Not Taking Family History Problem Relation Age of Onset Gastroesophageal reflux Mother High Cholesterol Mother Gastroesophageal reflux Maternal Aunt Gastroesophageal reflux Maternal Grandmother High Cholesterol Father Asthma Father No known problems Brother No known problems Brother Eosinophilic Esophagitis Neg Hx Crohn's Disease Neg Hx Ulcerative Colitis Neg Hx Thyroid Disease Neg Hx Celiac Disease Neg Hx Anesth Problems Neg Hx Bleeding Problem Neg Hx VITAL SIGNS: Vitals: 01/26/23 0815 BP: 114/76 Pulse: 86 Resp: 16 Temp: 36.7 C (98.1 F) I/O: No intake or output data in the 24 hours ending 01/26/23 0827 Physical Exam Constitutional: General: She is active. Appearance: She is thin. HENT: Mouth/Throat: Mouth: No mouth sores. Eyes: Conjunctiva/sclera: Conjunctivae normal. Cardiovascular: Heart sounds: No murmur heard. Pulmonary: Breath sounds: Normal breath sounds. There is no distension. Palpations: Abdomen is soft. Lymphadenopathy: Cervical: No neck adenopathy. Neurological: Mental Status: She is alert. Skin: General: Skin is warm. ASSESSMENT: This is a 17 year old female with N/V, weight loss, abdominal pains, esophagitis and polyp in stomach on previous scope. We were going to do labs today but she was so upset and crying and mom reports anxiety that we decided to wait for them to be done with scope. We will repeat scope, has been 2 years and we will set up PH probe to be done at the same time. PLAN: EGD and biopsies today DISCHARGE PLANNING: Patient may be discharged home after procedure Melva Meyer MD P - [phone] 01/[facility]2023[id number] Procedure note* Op Note - Melva Meyer MD - 01/26/2023 10:18 AM EDT Patient NamePRESLEY FRANCE Date of Birth2005 Record [id number] Date/Time of Procedure01/26/2023 , 9:21:00 AM Referring Physician EndoscopPatricia FRYE PROCEDURE PERFORMED EGD INDICATIONS FOR EXAMINATION Vomiting, unspecified vomiting type, unspecified whether nausea present [R11.10] Generalized abdominal pain [R10.84] R11.10 Vomiting, unspecified R10.84 Generalized abdominal pain INSTRUMENTS GIF [id number] PROCEDURE TECHNIQUE A physical exam was performed. Informed consent was obtained from the patient's parents/guardian after explaining all the risks (perforation, bleeding, infection and adverse effects to the medicine),benefits and alternatives to the procedure which the patient's parents appeared to understand and so stated. The patient was connected to the monitoring devices and placed in the supine position. Continuous oxygen was provided and IV medicine administered through a indwelling cannula. After adequate general anesthesia was achieved, the patient was intubated and the scope advanced under direct visualization to the third part of duodenum The esophagus, stomach and duodenum were identified by visual landmarks. The scope was subsequentlyremoved slowly while carefully examining the color, texture, anatomy, and integrity of the mucosa on the way out. The patient was subsequently transferred to the recovery area in satisfactory condition. ESTIMATED BLOOD LOSS2 ML FINDINGS Normal in the mid esophagus and distal esophagus. Biopsy obtained, results pending. Complete hemostasis achieved. Sessile and small polyp (nonbleeding) in the ge junction. Biopsy obtained, results pending. Complete hemostasis achieved. Normal in the antrum and fundus. Biopsy obtained, results pending. Complete hemostasis achieved. Normal in the third part of duodenum. Biopsy obtained, results pending. Complete hemostasis achieved. ENDOSCOPIC DIAGNOSIS Normal Esophagus Small sessile polyp noted at GE Junction Normal Stomach Normal Duodenum pH probe placed in left nares at 40cm; confirmed placement at GE junction [facility] Endoscope RECOMMENDATIONS Pending biopsy. [facility]06-07-2023 Plan of care note* Plan of Care - Nikia Burnett RN - 01/26/2023 10:07 AM EDT Problem: Falls, Risk of Goal: Absence of falls Outcome: Ongoing Goal: Absence of physical injury Outcome: Ongoing Problem: Infection Risk, Surgical Site Goal: Absence of infection signs and symptoms Outcome: Ongoing Problem: Adverse Surgical Event, Risk of Goal: Absence of injury Outcome: Ongoing [facility]06-07-2023 History and physical note* Melva Meyer MD - 01/26/2023 8:27 AM EDT HISTORY AND PHYSICAL DATE OF SERVICE: 01/26/2023 PRIMARY CARE PROVIDER: Verena Byrnes MD ATTENDING PROVIDER: Melva Meyer MD CHIEF COMPLAINT: CHIVO REASON FOR HOSPITALIZATION: Surgery HPI This is a 17 year old female with N/V, weight loss, abdominal pains, esophagitis and polyp in stomach on previous scope. We were going to do labs today but she was so upset and crying and mom reportsanxiety that we decided to wait for them to be done with scope. We will repeat scope, has been 2 years and we will set up PH probe to be done at the same time. Review of Systems Constitutional: Positive for weight loss. Negative for recurrent fevers, weight gain and malaise/fatigue. HENT: Positive for sour taste. Negative for mouth sores and trouble swallowing. Eyes: Negative. Respiratory: Negative for coughing and wheezing. Cardiovascular: Negative for heart murmur and chest pain. Endocrine: Negative for poor growth. Gastrointestinal: Positive for heartburn and abdominal pain. Negative for constipation, diarrhea, vomiting, blood in stool, trouble swallowing and nausea. Genitourinary: Negative for dysuria and hematuria. Neurological: Negative for headaches, seizures, dizziness and fainting. Musculoskeletal: Negative for joint pain. Skin: Positive for acne. Negative for rash and easy bruising. Allergy/Immune: Negative for frequent infections. Hematology: Negative for no easy bleeding and no easy bruising. PAST MEDICAL/SURGICAL HISTORY: Past Medical History: Diagnosis Date Gastroesophageal reflux disease without esophagitis Past Surgical History: Procedure Laterality Date UPPER GASTROINTESTINAL ENDOSCOPY N/A 02/18/2021 ENDOSCOPY UPPER (FLEXIBLE) with biopsies performed by Cuco Gan DO at [facility] [place] OR DRUG/FOOD ALLERGIES: No Known Allergies IMMUNIZATIONS: Not evaluated at this time MEDICATIONS: Medications Prior to Admission Medication Sig Dispense Refill Last Dose esomeprazole (NEXIUM) 40 MG capsule Take 1 Capsule (40 mg) by mouth daily 30 Capsule 3 Past Week FLUoxetine (PROZAC) 20 MG capsule (Patient not taking: Reported on 01/26/2023) Not Taking hyoscyamine (LEVSIN) 0.125 MG TABS tablet Take 1 Tablet (0.125 mg) by mouth every 6 hours as neededfor Other (abdominal pain, nausea) (Patient not taking: Reported on 01/26/2023) 90 Tablet 2 Not Taking escitalopram (LEXAPRO) 10 MG tablet Take by mouth daily (Patient not taking: Reported on 01/26/2023) Not Taking Family History Problem Relation Age of Onset Gastroesophageal reflux Mother High Cholesterol Mother Gastroesophageal reflux Maternal Aunt Gastroesophageal reflux Maternal Grandmother High Cholesterol Father Asthma Father No known problems Brother No known problems Brother Eosinophilic Esophagitis Neg Hx Crohn's Disease Neg Hx Ulcerative Colitis Neg Hx Thyroid Disease Neg Hx Celiac Disease Neg Hx Anesth Problems Neg Hx Bleeding Problem Neg Hx VITAL SIGNS: Vitals: 01/26/2315 BP: 114/76 Pulse: 86 Resp: 16 Temp: 36.7 C (98.1 F) I/O: No intake or output data in the 24 hours ending 01/26/23826 Physical Exam Constitutional: General: She is active. Appearance: She is thin. HENT: Mouth/Throat: Mouth: No mouth sores. Eyes: Conjunctiva/sclera: Conjunctivae normal. Cardiovascular: Heart sounds: No murmur heard. Pulmonary: Breath sounds: Normal breath sounds. There is no distension. Palpations: Abdomen is soft. Lymphadenopathy: Cervical: No neck adenopathy. Neurological: Mental Status: She is alert. Skin: General: Skin is warm. ASSESSMENT: This is a 17 year old female with N/V, weight loss, abdominal pains, esophagitis and polyp in stomach on previous scope. We were going to do labs today but she was so upset and crying and mom reportsanxiety that we decided to wait for them to be done with scope. We will repeat scope, has been 2 years and we will set up PH probe to be done at the same time. PLAN: EGD and biopsies today DISCHARGE PLANNING: Patient may be discharged home after procedure Melva Meyer MD P - [phone] 01/26/[address] [facility]06-07-2023 History and physical note* Melva Meyer MD - 01/26/2023 8:27 AM EDT HISTORY AND PHYSICAL DATE OF SERVICE: 01/26/2023 PRIMARY CARE PROVIDER: Verena Byrnes MD ATTENDING PROVIDER: Melva Meyer MD CHIEF COMPLAINT: CHIVO REASON FOR HOSPITALIZATION: Surgery HPI This is a 17 year old female with N/V, weight loss, abdominal pains, esophagitis and polyp in stomach on previous scope. We were going to do labs today but she was so upset and crying and mom reportsanxiety that we decided to wait for them to be done with scope. We will repeat scope, has been 2 years and we will set up PH probe to be done at the same time. Review of Systems Constitutional: Positive for weight loss. Negative for recurrent fevers, weight gain and malaise/fatigue. HENT: Positive for sour taste. Negative for mouth sores and trouble swallowing. Eyes: Negative. Respiratory: Negative for coughing and wheezing. Cardiovascular: Negative for heart murmur and chest pain. Endocrine: Negative for poor growth. Gastrointestinal: Positive for heartburn and abdominal pain. Negative for constipation, diarrhea, vomiting, blood in stool, trouble swallowing and nausea. Genitourinary: Negative for dysuria and hematuria. Neurological: Negative for headaches, seizures, dizziness and fainting. Musculoskeletal: Negative for joint pain. Skin: Positive for acne. Negative for rash and easy bruising. Allergy/Immune: Negative for frequent infections. Hematology: Negative for no easy bleeding and no easy bruising. PAST MEDICAL/SURGICAL HISTORY: Past Medical History: Diagnosis Date Gastroesophageal reflux disease without esophagitis Past Surgical History: Procedure Laterality Date UPPER GASTROINTESTINAL ENDOSCOPY N/A 02/18/2021 ENDOSCOPY UPPER (FLEXIBLE) with biopsies performed by uCco Gan DO at [facility] [place] OR DRUG/FOOD ALLERGIES: No Known Allergies IMMUNIZATIONS: Not evaluated at this time MEDICATIONS: Medications Prior to Admission Medication Sig Dispense Refill Last Dose esomeprazole (NEXIUM) 40 MG capsule Take 1 Capsule (40 mg) by mouth daily 30 Capsule 3 Past Week FLUoxetine (PROZAC) 20 MG capsule (Patient not taking: Reported on 01/26/2023) Not Taking hyoscyamine (LEVSIN) 0.125 MG TABS tablet Take 1 Tablet (0.125 mg) by mouth every 6 hours as neededfor Other (abdominal pain, nausea) (Patient not taking: Reported on 01/26/2023) 90 Tablet 2 Not Taking escitalopram (LEXAPRO) 10 MG tablet Take by mouth daily (Patient not taking: Reported on 01/26/2023) Not Taking Family History Problem Relation Age of Onset Gastroesophageal reflux Mother High Cholesterol Mother Gastroesophageal reflux Maternal Aunt Gastroesophageal reflux Maternal Grandmother High Cholesterol Father Asthma Father No known problems Brother No known problems Brother Eosinophilic Esophagitis Neg Hx Crohn's Disease Neg Hx Ulcerative Colitis Neg Hx Thyroid Disease Neg Hx Celiac Disease Neg Hx Anesth Problems Neg Hx Bleeding Problem Neg Hx VITAL SIGNS: Vitals: 01/26/23 0815 BP: 114/76 Pulse: 86 Resp: 16 Temp: 36.7 C (98.1 F) I/O: No intake or output data in the 24 hours ending 01/26/23 0827 Physical Exam Constitutional: General: She is active. Appearance: She is thin. HENT: Mouth/Throat: Mouth: No mouth sores. Eyes: Conjunctiva/sclera: Conjunctivae normal. Cardiovascular: Heart sounds: No murmur heard. Pulmonary: Breath sounds: Normal breath sounds. There is no distension. Palpations: Abdomen is soft. Lymphadenopathy: Cervical: No neck adenopathy. Neurological: Mental Status: She is alert. Skin: General: Skin is warm. ASSESSMENT: This is a 17 year old female with N/V, weight loss, abdominal pains, esophagitis and polyp in stomach on previous scope. We were going to do labs today but she was so upset and crying and mom reportsanxiety that we decided to wait for them to be done with scope. We will repeat scope, has been 2 years and we will set up PH probe to be done at the same time. PLAN: EGD and biopsies today DISCHARGE PLANNING: Patient may be discharged home after procedure Melva Meyer MD p - [phone] 01/26/2023 [facility] [id number] Winter [facility] December 02, 2022 3:32pm Note Date/Time December 02, 2022 3:2 7pm [facility] Medical Records Department [address] [place] [address] Emergency Department Summary 12/02/22 MR#: [id number] Acct: [id number] Name: PRESLEY FRANCE Rep #:[id number] : 2005 17 From: John Winter MD PCP: Dr. Verena Byrnes MD Status:REG ER Location: ED HPI HPI - GI History of Present Illness Chief Complaint: Abd Pain Informant: patient and parent (Mother) Narrative Narrative: Patient presents with diffuse abdominal pain and dry heaving all morning. This is nothing new, but the dry heaving is worse this morning. She states she has ahistory of this for months, and also has a history of anxiety and oftentimes something stressful triggers this although there was no obvious trigger this morning. No treatment before arrival. No fevers, chills, diarrhea, or other new symptoms. [facility] Medical History Anxiety Contact with and (suspected) exposure to other viral communicable diseases Contusion of left foot Depression Gastroenteritis GERD (gastroesophageal reflux disease) Left ankle sprain Home Medications escitalopram oxalate 10 mg tablet 20 mg PO DAILY 11/05/19 [History Last Taken Unknown] esomeprazole magnesium 40 mg capsule,delayed release 40 mg PO DAILY 07/03/21 [History Last Taken Unknown] hydroxyzine pamoate 25 mg capsule (Vistaril) 25 mg PO TID PRN anxiety #20 caps 10/08/21 [Rx Last Taken Unknown] dicyclomine 10 mg capsule 20 mg PO Q6H PRN PRN abdominal discomfort #24 SYPIEJAL54/13/23 [Rx Last Taken Unknown] ondansetron 4 mg disintegrating tablet 8 mg PO Q12H PRN PRN Nausea #14 tabs 12/02/22 [Rx Last Taken Unknown] Allergy/AdvReac Type Severity Reaction Status Date / Time No Known Allergies Allergy Verified 12/02/22 13:12 Social History Smoking Status: Never smoker alcohol intake: never ROS ROS ED Constitutional Constitutional ED: Denies chills or fever(s) Eyes Eyes: Denies change in vision or diplopia ENT ENT ED: Denies rhinorrhea or sore throat Cardiovascular Cardiovascular: Denies chest pain or palpitations Respiratory/Chest Respiratory/Chest: Denies cough or dyspnea Gastrointestinal Gastrointestinal: Reports abdominal pain, nausea and vomiting; Denies diarrhea or melena Genitourinary Genitourinary ED: Denies dysuria or hematuria Musculoskeletal Musculoskeletal: Denies back pain or neck pain Integumentary Denies abscess or rash Neurologic Neurologic: Denies headache(s), paresthesias or weakness Psychiatric Psychiatric: Denies anxiety or suicidal thoughts EXAM Physical Exam Const Vital Signs: 12/02/22 13:10 Temperature 98.6 F Temperature Source Temporal Pulse Rate 98 H Respiratory Rate 16 Blood Pressure 121/86 H Blood Pressure Mean 97 Pulse Ox 100 Oxygen Delivery Method Room Air Positive well nourished and well developed Constitutional Narrative: Well-appearing in no distress General Appearance ED: well developed and NAD HEENT Reports moist mucous membranes normocephalic and atraumatic Eyes PERRL and EOMs intact bilaterally Neck full ROM and supple Resp normal respiratory effort and clear to auscultation bilaterally Cardio regular rate, regular rhythm and no murmurs GI non-distended GI Narrative: Mild diffuse tenderness without guarding, rebound, distention. Auscultation: normoactive bowel sounds Palpation: soft Back/Spine no CVA tenderness General Back: other FROM Extremity normal to inspection General Extremety ED: Negative for edema, pulses abnormal or tenderness General Extremity: Negative for edema or pulses abnormal Neuro oriented x3, CN's II-XII intact bilaterally and no sensory deficits noted Sensorium / Orientation: awake and alert Motor Exam: strength 5/5 throughout Skin no rashes or lesions noted and no wounds MDM MDM MDM Narrative Medical decision making narrative: Vital signs are normal and patient has a very benign exam and is well-appearing. She was given Zofran followed by GI cocktail and oral dicyclomine and observed. She felt much better on reevaluation, there is no vomiting in the ER she is able to drink, given prescriptions for this and advised to follow-up. Mom and patient are thankful and comfortable with that plan. Discharge Plan Triage Chief Complaint: Abd Pain ED Provider: John Winter Dx/Rx/DC Orders Clinical Impression: Diffuse abdominal pain, Acute gastritis without bleeding Instructions: ED Gastritis (Adult) Prescriptions: New dicyclomine 10 mg capsule 20 mg PO Q6H PRN PRN (Reason: abdominal discomfort) Qty: 24 0RF ondansetron [ondansetron] 4 mg tablet,disintegrating 8 mg PO Q12H PRN PRN (Reason: Nausea) Qty: 14 0RF No Action escitalopram oxalate 10 mg tablet 20 mg PO DAILY esomeprazole magnesium 40 mg capsule,delayed release(DR/EC) 40 mg PO DAILY hydroxyzine pamoate [Vistaril] 25 mg capsule 25 mg PO TID PRN (Reason: anxiety) Qty: 20 0RF Primary Care Provider: Verena Byrnes Referrals: Verena Byrnes MD [Primary Care Provider] - As Needed Disposition Disposition: Home, Self Care What to do if you have Problems For any increased pain, shortness of breath, bleeding, nausea or vomiting, chestpain, or any unexpected problems, contact your Primary Care Provider. Call [facility] ([phone]) or report to the closest Emergency Room. Call 911 if necessary. 12/02/221531 <Electronically signed by John Winter MD> Cosigner Signature (if applicable): CC: Dr. Verena Byrnes MD ~ Signed [facility] Work Phone: Chias complaint+Reason for visit Narrative* Chief Complaint SORE THROAT WORK PHYSICAL/SENIC POINT Reason for Visit Exposure to COVID-19 virus Pharyngitis 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 [facility] Work Phone: Chief complaint+Reason for visit Narrative* Chief Complaint Admit Date PNOB Vitals & Education April 09 8:00am [facility] Work Phone: evaluation note* Diagnosis Onset Date Resolution Status Exposure to COVID-19 virus a cute Pharyngitis acute 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 acute [facility] Work Phone: Evaluation note* Diagnosis Onset Date Resolution Status Exposure to COVID-19 virus a cute Pharyngitis acute 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 acute Contusion of left foot acute Left ankle sprain acute Contusion of left foot acute Left ankle sprain acute Contact with and (suspected) exposure to other viral communicable diseases acute Gastroenteritis acute [facility] Work Phone: Evaluation note* Diagnosis Onset Date Resolution Status Contusion of left foot acute Left ankle sprain acute Contusion of left foot acute Left ankle sprain acute Contact with and (suspected) exposure to other viral communicable diseases acute Gastroenteritis acute [facility] Work Phone: evaluation note* Diagnosis Vomiting, unspecified vomiting type, unspecified whether nausea present Generalized abdominal pain Abdominal pain, generalized [facility] Diagnosis Vomiting, unspecified vomiting type, unspecified whether nausea present documented in this encounter [facility]* Diagnosis Onset Date Resolution Status Contusion of left foot acute Left ankle sprain acute Contact with and (suspected) exposure to other viral communicable diseases acute Gastroenteritis acute [facility] Work Phone: Evaluation note* Diagnosis Vomiting, unspecified vomiting type, unspecified whether nausea present Generalized abdominal pain Abdominal pain, generalized documented in this encounter [facility] noteNo assessment information available [facility] Work Phone: evaluation note* Diagnosis Onset Date Resolution Status Admit Date Anxiety and depression acute Se pt2024 8:01am Current every day vaping acute April 25, 2025 8:01am FH: breast cancer acute Septemb 2024 8:01am Gastroenteritis acute April 25, 2025 8:01am History of stomach ulcers acute April 25, 2025 8:01am Marijuana use acute April 252024 8:01am acute April 25, 2025 8:01am Supervision of high-risk acute April 25, 025 8:01am Underweight (BMI < 18.5) acute April 25, 2025 8:01am [facility] Work Phone: Progress note Author Karen Aj [facility] Note Date/Time April 25, 2025 8:34am [facility] [address] [place] [address], [address] [place] [address] OFFICE VISIT Date of Service: 04/25/25 MR#: [id number] Acct: [id number] Name: PRESLEY FRANCE Rep #: [id number] : 2005 Provider: PHUONG Aj Age/Sex: 20/F [place] [facility] [place] [facility] [place]: Signed Intake Vital Signs 12/02/22 13:10 04/09/25 09:41 04/25/25 08:11 Height 5 ft 5 in 5 ft 3.5 in 5 ft 3.5 in Weight: 104 lb 5 oz 111 lb 4 oz BMI 18.1 19.3 BP 110/60 113/73 Blood Pressure Location Lt brachial Position Sitting Intake Visit Reasons: *NEW* NOB LMP 02/22, ANNI 11/29 Chief Complaint: New OB Boiler Attendant Required: No Is patient in pain?: No Allergies No Known Allergies Allergy (Verified 04/25/25 08:11) Medications ?Medication ?Instructions ?Recorded ?Confirmed ?Type fluoxetine 20 mg capsule 20 mg PO QDAY 04/09/2504/25 History multivit-min no.71-iron fum 28 cap PO 04/09/25 5 History mg-folate no.1 1 mg-dha 300 mg capsule (PNV-Mcintosh) promethazine 25 mg tablet 25 mg PO TID PRN nausea and 04/09/25 04/25/25 Rx vomiting, and anxiety #60 tabs Last Menstrual Period: 02/22/25 : Yes PFSH PFSH Medical History Seasonal allergies Paronychia of finger of left hand Contact with and (suspected) exposure to other viral communicable diseases Gastroenteritis Contusion of left foot Left ankle sprain Depression Anxiety GERD (gastroesophageal reflux disease) Surgical History History of esophagogastroduodenoscopy (EGD) Family History Father High cholesterol Mother High cholesterol Maternal Grandmother Breast cancer, Onset Age: 67 Grandfather Cancer, Onset Age: 66 Paternal Maternal Grandfather Myocardial infarction, Onset Age: 50 Social History adopted: No household members: spouse housing: other details: trailer current occupational status: employed current occupation: [employer] pets and animals: Yes (Avoid litterbox) pets and animals: cat(s) and dog(s) history of recent travel: No sexually active: Yes Smoking Status: Current every day smoker tobacco type: e-cigarettes quit status: considering quitting alcohol intake: never substance use type: marijuana well-balanced diet: about half the time caffeine: Yes Type: coffee Number of servings: 2 eating out: 1-3 times/week during the past year weight has: remained stable what type of physical activity do you participate in: none giles/voodoo: None seatbelt use: sometimes do you feel safe at home: Yes additional social history: [employer] History 1 Elective abortions Hx Para 0 Spontaneous abortions Hx # Term Pregnancies Ectopic pregnancies Hx # Pregnancies Multiple births # of living children HPI *NEW* NOB LMP 02/22, ANNI 11/29 Details: PRESLEY FRANCE is a 20 year old who presents for New OB visit. OB Visit ANNI Calculator Estimated Delivery Date Method Current WG Current Estimate 11/29/25 LMP (Uncertain) 8w 6d Other Estimates 11/29/25 Ultrasound #1 8w 6d Comments: HIV: Urine Culture: Sequential Screen: NIPT Screen: Estimated Due Date: 11/29/25 Expected Delivery Route/Plan Labor Preferences- CB/BF classes: [] labor support person: [] labor intervention preferences: [] pain management options preferred: [] cut cord/dad catch: [] : [] PP control planned: [] discussed possible routes of delivery and associated risks: [] special requests: [] Specific Issue/Plans Covid status: [] Flu vaccine: [] Tdap vaccine: [] Rhogam: [] LARC form signed: [] Problem list reviewed and updated with the most current plan of care details and appropriate orders placed. Relevant counseling for the gestational age provided. Continue routine care and follow up unless otherwise noted in visit notes/problem list details Initial Weight: 111 lb Date -?-?-?-?-?-?-?-?-?-?-?-?- EGA Weight BP Urine Prot -?-?-?-?-?-?-?-?-?-?-?-?- Glucose FHR FuHt Pres Dilation -?-?-?-?-?-?-?-?-?-?-?-?- Effaced St Visit Note 04/25/25 -?-?-?-?-?-?-?-?-?-?-?-?- 8w 6d 111 lb 4 oz (+4 oz) 113/73 -?-?-?-?-?-?-?-?-?-?-?-?- 176 -?-?-?--?-?-?-?-?-?-?-?-?- KW- CRL 2.22 con s with dates. accepts NIPT Menstrual History Last Menstrual Period: 02/22/25 Reported LMP: definite Normal amount/duration: No (shorter than normal) Frequency in days: 28-30 On hormonal BC at conception: No hCG+: 03/25/25 Antepartum Record Genetic Screening: Congenital Heart Defect: Other, Neural Tube Defect: Partner (balance center in brain not completely formed), Hemoglobinopathy Or Carrier: Other, Cystic Fibrosis: Other, Chromosome Abnormality: Other, Robert-Sachs: Other, Hemophilia: Other, Intellectual Disability/Autism: Other, Recurrent Loss/Stillbirth: Other, Other Structural Defect: Other, Other Genetic Disease: Other and Maternal Metabolic Disorder: Other Infection History: Live with someone with TB or Exposed to TB: No, Patient or Partner has history of Genital Herpes: No, Rash or Viral illness since last mentrual period: Yes (GI flu), Prior GBS-Infected child: No, History of STD: No, HIV Infection: No, History of Hepatitis: No, Recent travel outside of [place]: No, Concern for hepatitis exposure: No, Varicella immune: Yes (immune-vaccinated) and Covid Vaccinated: No Medical History Medical History: Positive: Psychiatric (anxiety), Depression/ depression (fluoxetine), Seasonal allergies (mild), Operations/hospitalizations (EGD), Relevant family history (FH Breast Cancer Maternal Grandmother, Paternal Grandfather skin cancer, Maternal Grandfather MT, Parents with high cholesterol) and Other (GI issues-ulcers, reflux) and Negative: Diabetes, Hypertension, Heart disease, Auto-immune disorder, Kidney disease/UTI, Neurologic/epilepsy, Hepatitis/liver disease, Varicosities/phlebitis, Thyroid dysfunction, Trauma/domestic violence, History of blood transfusions, D (Rh) Sensitized, Pulmonary (e.g.,TB,Asthma) (smoker), Drug/latex allergies/reactions, Breast, Stocking Inspector surgery, Anesthetic complications, History of abnormal pap, Uterine anomaly/rafiq, Infertility and Anti-retroviral treatment ACOG First Trimester First Trimester: Desire for , Alcohol, Tobacco Cessation, Illicit/Recreational Drug/Substance Use, Intimate Partner Violence, Barriers to care, Unstable Housing, Communication Barriers, Environmental/Work Hazards, Anticipated Course of Care, Nurtrition and weight gain, Toxoplasmosis Precations, Use of Any medications, Sexual activity, Exercise, Dental Care, Sauna/Hot tub use, Seat Belt use, Childbirth classes/Hospital facilities, , Travel, Indications for Ultrasound and Screening for Aneuploidy Second Trimester Second Trimester: Signs and Symptoms of Labor, Selecting a care provider, Reproductive Life Planning & Contreception, Care Planning, Depression/Anxiety and Intimate Partner Violence; Discussed Tobacco Cessation Third Trimester Third Trimester: Pain Management Plans, Labor support person(s), Immediate Larc, Signs and Symptoms of Preeclampsia, Infant Feeding Yes , Education and Family Medical Leave or Disability Forms ROS Const Reports system reviewed and no additional complaints, except as documented, Denies fatigue, Denies headache(s) and Denies lethargy ENT Denies headache(s) Card Reports system reviewed and no additional complaints, except as documented Resp Reports system reviewed and no additional complaints, except as documented GI Reports system reviewed and no additional complaints, except as documented, Denies abdominal pain, Denies constipation, Denies cramping, Denies diarrhea and Denies dyspepsia Reports system reviewed and no additional complaints, except as documented, Denies abnormal vaginal bleeding, Denies difficulty voiding, Denies dyspareunia and Denies dysuria Musc Reports system reviewed and no additional complaints, except as documented Skin/Breast Reports system reviewed and no additional complaints, except as documented Neuro Yes system reviewed and no additional complaints, except as documented and No headache(s) Psych Reports system reviewed and no additional complaints, except as documented, Denies anhedonia and Denies anxiety Endo Reports system reviewed and no additional complaints, except as documented and Denies fatigue Exam Const General: cooperative, healthy appearing and comfortable Neck Neck: normal visual inspection and full ROM Chest Chest palpation & inspection: normal inspection of the chest Breast inspection: normal inspection of the breasts and normal inspection of the axillae Breast palpation: normal palpation of the breasts and normal palpation of the axillae Resp Effort & Inspection: normal respiratory effort and able to speak in complete sentences GI Inspection: normal to inspection Palpation: soft External Female Exam: normal external appearance and normal appearance of the urethra Urethra: normal appearance of the urethra Skin General: no rashes or lesions noted Neuro General: patient alert, patient awake and patient oriented x3 Extrem General: normal to inspection and full ROM Psych Appearance: grossly normal and well kempt Mental Status: mental status grossly normal Mood: congruent mood Affect: normal affect Speech and Movement: speech and movement normal Thought Process: normal Thought Content: normal Coding Level of Care Code OB Routine Diagnoses Underweight (BMI < 18.5) R63.6; Z68.1 Supervision of high-risk O09.90 8 weeks gestation of Z3A.08 Weeks of gestation: 8 weeks FH: breast cancer Z80.3 History of stomach ulcers Z87.11 Current every day vaping Z72.89 Marijuana use F12.90 Anxiety and depression F41.9; F32.A Gastroenteritis K52.9 Assessment and Plan Assessment and Plan (1) Underweight (BMI < 18.5): Status: Acute Comment: thiamine, B12, iron & iron binding (2) Supervision of high-risk : Status: Acute Comment: , ANNI 11/29/25, Sebastian (3) : Status: Acute Qualifiers: Weeks of gestation: 8 weeks Qualified Code(s): Z3A.08 - 8 weeks gestation of Comment: elects NIPT with gender, declines carrier (4) FH: breast cancer: Status: Acute Comment: Maternal Grandmother (5) History of stomach ulcers: Status: Acute (6) Current every day vaping: Status: Acute Comment: cutting down, considering quitting, discussed risks & encouraged cessation (7) Marijuana use: Status: Acute Comment: attempting to decrease use, discussed risks & encouraged cessation (8) Anxiety and depression: Status: Acute Comment: fluoxetine (9) Gastroenteritis: Status: Acute Orders: Orders CBC W/Diff, Automated 04/09/25 O09.90 - Supervision of high risk , unspecified, unspecified trimester Type & Screen 04/09/25 O09.90 - Supervision of high risk , unspecified, unspecified trimester Rubella IgG 04/09/25 O09.90 - Supervision of high risk , unspecified, unspecified trimester Hepatitis C Antibody 04/09/25 O09.90 - Supervision of high risk , unspecified, unspecified trimester Hepatitis B Surface Antigen 04/09/25 O09.90 - Supervision of high risk , unspecified, unspecified trimester Culture, Urine 04/09/25 O09.90 - Supervision of high risk , unspecified, unspecified trimester Syphilis Antibodies 04/09/25 O09.90 - Supervision of high risk , unspecified, unspecified trimester Chlamydia/GC ROOPA aptima 04/09/25 O09.90 - Supervision of high risk , unspecified, unspecified trimester HIV 04/09/25 O09.90 - Supervision of high risk , unspecified, unspecified trimester Iron+Iron Binding Capacity 04/09/25 O09.90 - Supervision of high risk , unspecified, unspecified trimester, R63.6 - Underweight, Z68.1 - Body mass index [BMI] 19.9 or less, adult Vitamin B1, Thiamine 04/09/25 O09.90 - Supervision of high risk , unspecified, unspecified trimester, R63.6 - Underweight, Z68.1 - Body mass index [BMI] 19.9 or less, adult Vitamin B12 04/09/25 O09.90 - Supervision of high risk , unspecified, unspecified trimester, R63.6 - Underweight, Z68.1 - Body mass index [BMI] 19.9 or less, adult Urine Drug Screen 04/09/25 F12.90 - Cannabis use, unspecified, uncomplicated, O0990 - Supervision of high risk , unspecified, unspecified trimester CEFERINO 04/09/25 O09.90 - Supervision of high risk , unspecified, unspecified trimester Comments Comments: Patient oriented to practice and discussed care expectations and screenings. ACOG book offered to patient. Discussed routine and specially indicated labs if needed- patient consents to testing. See problem list details for plan information. Optional screening including maternal carrier screenings, neural tube defect screening, genetic screening options including quad screen, nuchal translucency, sequential screening, and NIPT screening offered to patient and patient chose: NIPT 04/25/25 0834 <Electronically signed by Karen isbell CNM> Date _ Karen Aj CNM Cosigner Signature: Date (if applicable) CC: ~ [facility] Work Phone: Reason for referral (narrative)No reason for referral information availableMathiston Medical Services Work Phone: Summary Purpose Family History Relationship Condition Age at Onset Recorded Date/T gemma father High blood cholesterol Unknown mother High blood cholesterol Unknown Not Specified Malignant neoplasm of breast 67 grandfather Malignant neoplasm 66 Not Specified Myocardial infarction 50 Advance Directives No Advanced Directives Records FoundNo Advanced Directives Records FoundNo Advanced Directives Records FoundNo Advanced Directives Records Found Chief Complaint and Reason for Visit Chief Complaint SORE THROAT WORK PHYSICAL/SENIC [place] L FOOT INJURY/ RAN IT OVER WITH CART ANKLE 3 VIEW/FOOT 3 VIEW 1 W FU ARIAS/DIARRHEA/FATIGUE Reason for Visit Exposure to COVID-19 virus Pharyngitis 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 Contusion of left foot Left ankle sprain Contusion of left foot Left ankle sprain Contact with and (suspected) exposure to other viral communicable diseases Gastroenteritis Chief Complaint L FOOT INJURY/ RAN I T OVER WITH CART ANKLE 3 VIEW/FOOT 3 VIEW 1 W FU ARIAS/DIARRHEA/FATIGUE ABDOMINAL PAIN Reason for Visit Contusion of left fo ot Left ankle sprain Contusion of left foot Left ankle sprain Contact with and (suspected) exposure to other viral communicable diseases Gastroenteritis Chief Complaint 1 W FU ARIAS/DIARRHEA/FATIGUE ABDOMINAL PAIN VOMITING Reason for Visit Contusion of left fo ot Left ankle sprain Contact with and (suspected) exposure to other viral communicable diseases Gastroenteritis Additional Source Comments INFORMATION SOURCE (unrecogn ized section and content) DATE CREATED AUTHOR 09/13/2020 [facility] DATE CREATED AUTHOR AUTHOR'S ORGANIZ ATION 03/10/2022 [facility] DATE CREATED AUTHOR AUTHOR'S ORGANIZ ATION 07/22/[address] [facility] DATE CREATED AUTHOR AUTHOR'S ORGANIZ ATION 05/25/2025 [facility] Goals (unrecognized section and content) Type Care Experience Labor Preferences-CB /BF classes: []labor support person: []labor intervention preferences: []pain management options preferred: []cut cord/dad catch: []: []PP control planned: []discussed possible routes of delivery and associated risks: []special requests: [] Care Teams (unrecognized sec tion and content) Team Status: Active Member Role Status Dates Dr. Derrick Amato MD Family Provider Active Dr. Verena Byrnes MD Primary Care Provider Active Team Status: Inactive Member Role Status Dates Dr. Verena Byrnes MD Primary Care Provider, Referrin g Provider Active Eddie CONDON PA Attending Provider Active Team Status: Inactive Member Role Status Dates Dr. Verena Byrnes MD Primary Care Provider, Referrin g Provider Active Scott CONDON PA Attending Provider Active Team Status: Inactive Member Role Status Dates Dr. Verena Byrnes MD Primary Care Provider Active Scott CONDON PA Attending Provider Active Team Status: Inactive Member Role Status Dates Dr. Verena Byrnes MD Primary Care Provider, Attendin g Provider Active Team Status: Inactive Member Role Status Dates Dr. Verena Byrnes MD Primary Care Provider Active Dr. John Winter MD Emergency Provider Active Territory Account Executive Relationship Specialty Start Date End Date Verena Byrnes MD [address] [place] [address] PCP - General Family Medicine 11/27/20 Territory Account Executive Relationship Specialty Start Date End Date Verena Byrnes MD [address] [place] [address] PCP - General Family Medicine 11/27/20 Team Status: Inactive Member Role Status Dates Dr. Verena Byrnes MD Primary Care Provider Active Dr. John Winter MD Attending Provider, Emergency Provider Active Team Status: Inactive Member Role Status Dates Dr. Verena Byrnes MD Primary Care Provider Active ERIK DANG Attending Provider Active Territory Account Executive Relationship Specialty Start Date End Date Verena Byrnes MD [address] [place] [address] PCP - General Family Medicine 11/27/20 Team Status: Inactive Member Role Status Dates Dr. Verena Byrnes MD Primary Care Prov ider, Attending Provider, Referring Provider Active Team Status: Active Member Role/Relationship Status Dates Dr. Derrick Amato MD Family Provider Active Dr. Verena Byrnes MD Primary Care Provider Active Team Status: Inactive Member Role/Relationship Status Dates Dr. Verena Byrnes MD Primary Care Provider Active Start: April 09, 2025 End: April 09, 2025 Dr. Verena Byrnes MD Referring Provider Active Start: April 09, 2025 End: April 09, 2025 Dr. Brenna Hill DO Attending Provider Activ e Start: April 09, 2025 End: April 09, 2025 Team Status: Active Member Role/Relationship Status Dates Dr. Verena Byrnes MD Primary Care Provider Active Team Status: Inactive Member Role/Relationship Status Dates Dr. Verena Byrnes MD Primary Care Provider Active Start: April 25, 2025 End: April 25, 2025 Dr. Verena Byrnes MD Referring Provider Active Start: April 25, 2025 End: April 25, 2025 Karen Aj CNM Attending Provider Active S tart: April 25, 2025 End: April 25, 2025 Team Status: Inactive Member Role/Relationship Status Dates Dr. Verena Byrnes MD Primary Care Provider Active Start: April 25, 2025 End: April 25, 2025 Karen Aj CNM Attending Provider Active S tart: April 25, 2025 End: April 25, 2025 Team Status: Active Member Role/Relationship Status Dates Dr. Verena Byrnes MD Primary care physician Active Team Status: Inactive Member Role/Relationship Status Dates Dr. Verena Byrnes MD Primary care physician Active Start: April 09, 2025 End: April 09, 2025 Dr. Verena Byrnes MD Referring Provider Active Start: April 09, 2025 End: April 09, 2025 Dr. Brenna Hill DO Attending physician Acti ve Start: April 09, 2025 End: April 09, 2025 Team Status: Inactive Member Role/Relationship Status Dates Dr. Verena Byrnes MD Primary care physician Active Start: April 25, 2025 End: April 25, 2025 Dr. Verena Byrnes MD Referring Provider Active Start: April 25, 2025 End: April 25, 2025 Karen Aj CNM Attending physician Active Start: April 25, 2025 End: April 25, 2025 Team Status: Inactive Member Role/Relationship Status Dates Dr. Verena Byrnes MD Primary care physician Active Start: April 25, 2025 End: April 25, 2025 Karen Aj CNM Attending physician Active Start: April 25, 2025 End: April 25, 2025 Team Status: Inactive Member Role/Relationship Status Dates Dr. Verena Byrnes MD Primary care physician Active Start: May 15, 2025 End: May 15, 2025 Dr. Farzana Fair MD Attending physician Active Start: May 15, 2025 End: May 15, 2025 Dr. Farzana Fair MD Referring Provider Active Start: May 15, 2025 End: May 15, 2025 Team Status: Inactive Member Role/Relationship Status Dates Dr. Verena Bynres MD Primary care physician Active Start: May 24, 2025 End: May 24, 2025 Dr. Verena Byrnes MD Referring Provider Active Start: May 24, 2025 End: May 24, 2025 Dr. Farzana Fair MD Attending physician Active Start: May 24, 2025 End: May 24, 2025 Reason for Visit (unrecogniz ed section and content) Specialty Diagnoses / Procedures Referred By Darryn t Referred To Contact Diagnoses Vomiting, unspecified vomiting type, unspecified whether nausea present Generalized abdominal pain Vomiting, unspecified vomiting type, unspecified whether nausea present [R11.10] Generalized abdominal pain [R10.84] Procedures WY EGD TRANSORAL BIOPSY SINGLE/MULTIPLE WY GERD TST W/ MUCOS IMPEDE ELECTROD,>1HR ENDOSCOPY UPPER (FLEXIBLE) [place] [address] Referral ID Status Reason Start Date Expiration Date Visits Re quested Visits Authorized [id number] 1 1 Continuous Active and Recently Administ ered Medications (unrecognized section and content) Medication Order 01/24/2023 01/25/2023 01/26/2023 Lactated Ringers IV (CANCELED) CONTINUOUS, Intravenous, at 90 mL/hr, Starting on Tue01/26/23 at 1100, For 90 days, PACU 1023 (Restarted from Bag - Provider: Arabella Mcgowan, SANDEEP)1120 (Stopped - Provider: Arabella Mcgowan RN) FOR RECORDS PERTAINING TO PATIENTS WHO ARE OR HAVE BEEN ENROLLED IN A CHEMICAL DEPENDENCY/SUBSTANCEABUSE PROGRAM, SOME INFORMATION MAY BE OMITTED. This clinical summary was aggregated from multiple sources. Caution should be exercised in using it in the provision of clinical care. This summary normalizes information from multiple sources, and as a consequence, information in this document may materially change the coding, format and clinical context of patient data. In addition, data may be omitted in some cases. CLINICAL DECISIONS SHOULD BE BASED ON THE PRIMARY CLINICAL RECORDS. [facility]. provides no warranty or guarantee of the accuracy or completeness of information in this document.
== END | disposition home or self-care (01) ==
LOC: LAB 08:51
PROVIDERS: PCP Family Medicine; Referring Provider Nurse Practitioner Women's Health; Visit Provider Nurse Practitioner Women's Health
DX: Z36.9 Encounter for antenatal screening, unspecified (principal)
CPT/HCPCS: 36415